=== PATIENT | male | born 1935 | race Caucasian/White ===

== ENCOUNTER 2024-10-19 10:51 | Emergency (ER) | payer MEDICARE, OTHER, SELFPAY ==
[2024-10-19 10:59] VITALS: BP 138/68; PULSE 80; TEMP 36.8; O2SAT 96; BMI 28.0
--- NOTE | 2024-10-19 11:15 | XR_ITS ---
The [address] [address] Patient Name: CARRIE JONES MRN: [id number] date: 1935 Sex: M Assigned Patient Location: ER Current Patient Location: Accession/Order Number: [id number] Exam Date: 10/19/2024 11:58 Report Date: 10/19/2024 12:31 At the request of: CATHLEEN POWELL Procedure: XR hand RT min 3V PROCEDURE: XR hand RT min 3V HISTORY: R thumb pain COMPARISON: None. FINDINGS: BONES:Multifocal marked degenerative joint disease. No acute fracture or dislocation. Separate ossification adjacent the first carpal-metacarpal joints and the first digit interphalangeal joint favoring sequela of remote injury. SOFT TISSUES:No visible soft tissue swelling. EFFUSION:None visible. OTHER: Negative. XR/XR hand RT min 3V IMPRESSION: 1. Multifocal marked degenerative joint disease. 2. No convincing acute bone abnormality. CT imaging of the hand could be performed for further evaluation if clinically indicated. Electronically authenticated by: ANTONELLA SHIN Date: 10/19/2024 12:31
--- NOTE | 2024-10-19 11:15 | XR_ITS ---
The [address] [address] Patient Name: CARRIE JONES MRN: [id number] date: 1935 Sex: M Assigned Patient Location: ER Current Patient Location: ER Accession/Order Number: [id number] Exam Date: 10/19/2024 11:58 Report Date: 10/19/2024 12:28 At the request of: CATHLEEN POWELL Procedure: XR chest 1V EXAMINATION: XR chest 1V HISTORY: cough COMPARISON: XR chest 08/01/2021 FINDINGS: LUNGS: Mild opacities within lateral left midlung and lingula. VASCULATURE: No increased pulmonary vasculature. PLEURA: No pneumothorax or pleural thickening. CARDIAC: No cardiomegaly or cardiac silhouette abnormality. MEDIASTINUM: No visible mass or adenopathy. BONES: Marked degenerative changes of the humeral heads. OTHER: Negative. XR/XR chest 1V IMPRESSION: 1. Mild-moderate left basilar infiltrates versus atelectasis. A small left pleural effusion cannot be excluded. Electronically authenticated by: ANTONELLA SHIN Date: 10/19/2024 12:28
--- NOTE | 2024-10-19 11:47 | ED.GENADUL1 ---
Documented by User: Raissa Garcia 10/19/24 11:49 HPI HPI - General Adult General Chief complaint: Extremity Injury, Upper Stated complaint: POSSIBLE BROKEN THUMB Time Seen by Provider: 10/19/24 11:04 History of Present Illness HPI narrative: Patient presents to ED for multiple complaints. Patient has pain in the right thumb. states his thumb got caught in his shirt and bent it last night and he is continue to have pain and swelling in the right thumb. also states since they are here he wanted to get checked out for other issues that have been going on. He has been urinating on himself, he has had increased confusion and bilateral lower extremity weakness. He had trouble standing on Saturday and continues to get weak and more confused at times. He has also had a cough. reports they have an appointment tomorrow with her family doctor but they were told to mention all of the stuff here today for us to do workup as well here today. is trying to get more help at home as far as assistance with his medical care and things of this nature. No chest pain no belly pain no fever. 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 Vital signs are stable. Related Data Home Medications ?Medication ?Instructions ?Recorded ?Confirmed tamsulosin 0.4 mg capsule 0.4 mg PO Q24H 10/19/24 10/19/24 Allergies Allergy/AdvReac Type Severity Reaction Status Date / Time No Known Drug Allergies Allergy Verified 10/19/24 11:01 Opioid HPI Opioid Management Most Recent Opioid Data: Last Pain Scale 6 10/19/24 11:45 10/19/24 Review of Systems ROS Status of ROS 10 or more systems reviewed and unremarkable except as noted in history and below PFSH PFSH Social History Little interest or pleasure in doing things: not at all Feeling down, depressed, or hopeless: not at all Exam Narrative Exam Narrative: Time Seen: [] Vital Signs: [Per nurse's notes.] General: [Alert] at baseline Skin: [Warm, dry, no rash.] Head: [Normocephalic, atraumatic.] Neck: [Supple, trachea midline.] Eye: [Pupils are equal, round and reactive to light, extraocular movements are intact, normal conjunctiva.] Ears, nose, mouth and throat: oral mucosa moist. Cardiovascular: [Regular rate and rhythm, no murmur.] Respiratory: [Lungs are clear to auscultation, respirations are non-labored, breath sounds are equal.] Chest wall: [No tenderness, no deformity.] Gastrointestinal: [Soft, nontender, non distended, normal bowel sounds.] MSK: 5 out of 5 muscle strength x 4 extremities no calf pain or edema. Tenderness and swelling at the base of the right thumb. Pain with range of motion. No wrist pain no elbow pain Psychiatric: [Cooperative, appropriate mood & affect.] Neurological: [Alert and oriented to person, at neurological baseline no focal neurological deficit observed.] Constitutional Vital Signs, click to edit/add: Last Vital Signs Temp 98.2 F 10/19/24 10:59 Pulse 80 10/19/24 13:10 Resp 16 10/19/24 13:10 BP 168/88 H 10/19/24 13:10 Pulse Ox 96 10/19/24 13:10 O2 Del Method Room Air 10/19/24 13:10 Course Vital Signs Vital signs: Vital Signs Temperature 98.2 F 10/19/24 10:59 Pulse Rate 80 10/19/24 10:59 Respiratory Rate 18 10/19/24 10:59 Blood Pressure 138/68 10/19/24 10:59 Pulse Oximetry 96 10/19/24 10:59 Oxygen Delivery Method Room Air 10/19/24 10:59 Temperature 98.2 F 10/19/24 10:59 Pulse Rate 80 10/19/24 13:10 Respiratory Rate 16 10/19/24 13:10 Blood Pressure 168/88 H 10/19/24 13:10 Pulse Oximetry 96 10/19/24 13:10 Oxygen Delivery Method Room Air 10/19/24 13:10 Medical Decision Making Lab Data Labs: Lab Results 10/19/24 10/19/24 Range/Units 11:50 11:55 WBC 11.0 (4.0-11.0) 10^3/uL RBC 4.69 L (4.70-6.10) 10^6/uL Hgb 14.6 (14.0-18.0) g/dL Hct 44.1 (42.0-54.0) % MCV 94.0 (80.0-94.0) fL MCH 31.1 (25.9-34.0) pg MCHC 33.1 (29.9-35.2) g/dL RDW 13.2 (11.0-15.0) % Plt Count 195 (150-450) 10^3/uL MPV 10.1 (9.5-13.5) fL Neut % (Auto) 74.2 (43.0-75.0) % Lymph % (Auto) 10.4 L (20.5-60.0) % [place] % (Auto) 12.9 H (1.7-12.0) % Eos % (Auto) 0.8 L (0.9-7.0) % Baso % (Auto) 0.3 (0.2-2.0) % Neut # (Auto) 8.2 H (1.4-6.5) 10^3/uL Lymph # (Auto) 1.2 (1.2-3.8) 10^3/uL [place] # (Auto) 1.4 H (0.3-0.8) 10^3/uL Eos # (Auto) 0.1 (0.0-0.7) 10^3/uL Baso # (Auto) 0.0 (0.0-0.1) 10^3/uL Abs Immat Gran (auto) 0.16 H (0.00-0.03) 10^3/uL Imm/Tot Granulo (auto) 1.4 H (0.0-0.5) % Sodium 141 (136-145) mmol/L Potassium 3.9 (3.5-5.1) mmol/L Chloride 109 H (98-107) mmol/L Carbon Dioxide 27.0 (21.0-32.0) mmol/L Anion Gap 8.9 BUN 22.0 H (7.0-18.0) mg/dL Creatinine 1.14 (0.70-1.30) mg/dL Est GFR ( Amer) >60 (>=60 mL/min/1.73m^2) Est GFR (Non-Af Amer) >60 (>=60 mL/min/1.73m^2) BUN/Creatinine Ratio 19.3 Glucose 100 (74-106) mg/dL Calcium 8.3 L (8.5-10.1) mg/dL Total Bilirubin 1.1 H (0.2-1.0) mg/dL AST 17 (15-37) U/L ALT 18 (16-63) U/L Alkaline Phosphatase 84 (46-116) U/L Total Protein 6.3 L (6.4-8.2) g/dL Albumin 3.2 L (3.4-5.0) g/dL Globulin 3.1 g/dL Albumin/Globulin Ratio 1.0 Urine Color Dk yellow (YELLOW) Urine Clarity Clear (CLEAR) Urine pH 6.5 (5.0-9.0) Ur Specific [place] 1.015 (1.005-1.025) Urine Protein Trace (NEG/TRACE) mg/dL Urine Glucose (UA) Negative (NEGATIVE) mg/dL Urine Ketones Negative (NEGATIVE) mg/dL Urine Occult Blood Trace-i (NEGATIVE) Urine Nitrite Negative (NEGATIVE) Urine Bilirubin Negative (NEGATIVE) Urine Urobilinogen 1.0 (0.2-1.0) EU/dL Ur Leukocyte Esterase Trace A (NEGATIVE) Urine RBC 2-5 A (0-2) #/HPF Urine WBC 0-2 A (NONE SEEN) #/HPF Ur Squamous Epith Cells Rare (NONE/RARE) #/LPF Urine Crystals None seen (None Seen) #/HPF Urine Bacteria None seen (NONE SEEN) #/HPF Urine Casts None seen (NONE SEEN) #/LPF Urine Mucus Trace A (NONE SEEN) Ur Culture Indicated? No Influenza Type A Ag Negative Influenza Type B Ag Negative SARS-CoV-2 Ag (CV2AG) Negative (NEGATIVE) Discharge Plan Discharge Chief Complaint: Extremity Injury, Upper Clinical Impression: Sprain of hand, thumb, right, Generalized muscle weakness Patient Disposition: Home, Self-Care Time of Disposition Decision: 12:52 Condition: Good Prescriptions / Home Meds: No Action tamsulosin 0.4 mg capsule 0.4 mg PO Q24H Print Language: Bulgarian Instructions: Finger Sprain (ED) Referrals: DANIEL XIE [Primary Care Provider] - 1 week Discharge Date/Time: 10/19/24 13:20 Documented by User: Cristin Dawkins MD 10/19/24 14:54 HPI HPI - General Adult General Chief complaint: Extremity Injury, Upper Stated complaint: POSSIBLE BROKEN THUMB Time Seen by Provider: 10/19/24 11:04 Related Data Home Medications ?Medication ?Instructions ?Recorded ?Confirmed tamsulosin 0.4 mg capsule 0.4 mg PO Q24H 10/19/24 10/19/24 Allergies Allergy/AdvReac Type Severity Reaction Status Date / Time No Known Drug Allergies Allergy Verified 10/19/24 11:01 Opioid HPI Opioid Management Most Recent Opioid Data: Last Pain Scale 6 10/19/24 11:45 10/19/24 PFSH PFSH Social History Little interest or pleasure in doing things: not at all Feeling down, depressed, or hopeless: not at all Exam Constitutional Vital Signs, click to edit/add: Last Vital Signs Temp 98.2 F 10/19/24 10:59 Pulse 80 10/19/24 13:10 Resp 16 10/19/24 13:10 BP 168/88 H 10/19/24 13:10 Pulse Ox 96 10/19/24 13:10 O2 Del Method Room Air 10/19/24 13:10 Course Vital Signs Vital signs: Vital Signs Temperature 98.2 F 10/19/24 10:59 Pulse Rate 80 10/19/24 10:59 Respiratory Rate 18 10/19/24 10:59 Blood Pressure 138/68 10/19/24 10:59 Pulse Oximetry 96 10/19/24 10:59 Oxygen Delivery Method Room Air 10/19/24 10:59 Temperature 98.2 F 10/19/24 10:59 Pulse Rate 80 10/19/24 13:10 Respiratory Rate 16 10/19/24 13:10 Blood Pressure 168/88 H 10/19/24 13:10 Pulse Oximetry 96 10/19/24 13:10 Oxygen Delivery Method Room Air 10/19/24 13:10 Medical Decision Making MDM Narrative Medical decision making narrative: I received signout from Dr. Garcia at 12 noon; The patient CBC and chemistry showed no acute significant pathology as well as his x-ray of the thumb X-ray of the chest shows possible atelectasis versus infiltrate on the left side, with the patient current presentation with no cough no difficulty breathing and no white blood cell elevation . This more correlate with possible atelectasis more than pneumonia Patient already follow-up with his primary care doctor tomorrow morning and the will explain more her home health care needs The patient had a thumb spica Velcro splint applied to the right thumb The patient is to follow up with primary care physician in next 2-3 days or to return to the emergency department should any of the signs or symptoms worsen or new symptoms develop. The patient agrees with the following Diagnosis and Treatment plan and the patient will be discharged home. Lab Data Labs: Lab Results 10/19/24 10/19/24 Range/Units 11:50 11:55 WBC 11.0 (4.0-11.0) 10^3/uL RBC 4.69 L (4.70-6.10) 10^6/uL Hgb 14.6 (14.0-18.0) g/dL Hct 44.1 (42.0-54.0) % MCV 94.0 (80.0-94.0) fL MCH 31.1 (25.9-34.0) pg MCHC 33.1 (29.9-35.2) g/dL RDW 13.2 (11.0-15.0) % Plt Count 195 (150-450) 10^3/uL MPV 10.1 (9.5-13.5) fL Neut % (Auto) 74.2 (43.0-75.0) % Lymph % (Auto) 10.4 L (20.5-60.0) % [place] % (Auto) 12.9 H (1.7-12.0) % Eos % (Auto) 0.8 L (0.9-7.0) % Baso % (Auto) 0.3 (0.2-2.0) % Neut # (Auto) 8.2 H (1.4-6.5) 10^3/uL Lymph # (Auto) 1.2 (1.2-3.8) 10^3/uL [place] # (Auto) 1.4 H (0.3-0.8) 10^3/uL Eos # (Auto) 0.1 (0.0-0.7) 10^3/uL Baso # (Auto) 0.0 (0.0-0.1) 10^3/uL Abs Immat Gran (auto) 0.16 H (0.00-0.03) 10^3/uL Imm/Tot Granulo (auto) 1.4 H (0.0-0.5) % Sodium 141 (136-145) mmol/L Potassium 3.9 (3.5-5.1) mmol/L Chloride 109 H (98-107) mmol/L Carbon Dioxide 27.0 (21.0-32.0) mmol/L Anion Gap 8.9 BUN 22.0 H (7.0-18.0) mg/dL Creatinine 1.14 (0.70-1.30) mg/dL Est GFR ( Amer) >60 (>=60 mL/min/1.73m^2) Est GFR (Non-Af Amer) >60 (>=60 mL/min/1.73m^2) BUN/Creatinine Ratio 19.3 Glucose 100 (74-106) mg/dL Calcium 8.3 L (8.5-10.1) mg/dL Total Bilirubin 1.1 H (0.2-1.0) mg/dL AST 17 (15-37) U/L ALT 18 (16-63) U/L Alkaline Phosphatase 84 (46-116) U/L Total Protein 6.3 L (6.4-8.2) g/dL Albumin 3.2 L (3.4-5.0) g/dL Globulin 3.1 g/dL Albumin/Globulin Ratio 1.0 Urine Color Dk yellow (YELLOW) Urine Clarity Clear (CLEAR) Urine pH 6.5 (5.0-9.0) Ur Specific [place] 1.015 (1.005-1.025) Urine Protein Trace (NEG/TRACE) mg/dL Urine Glucose (UA) Negative (NEGATIVE) mg/dL Urine Ketones Negative (NEGATIVE) mg/dL Urine Occult Blood Trace-i (NEGATIVE) Urine Nitrite Negative (NEGATIVE) Urine Bilirubin Negative (NEGATIVE) Urine Urobilinogen 1.0 (0.2-1.0) EU/dL Ur Leukocyte Esterase Trace A (NEGATIVE) Urine RBC 2-5 A (0-2) #/HPF Urine WBC 0-2 A (NONE SEEN) #/HPF Ur Squamous Epith Cells Rare (NONE/RARE) #/LPF Urine Crystals None seen (None Seen) #/HPF Urine Bacteria None seen (NONE SEEN) #/HPF Urine Casts None seen (NONE SEEN) #/LPF Urine Mucus Trace A (NONE SEEN) Ur Culture Indicated? No Influenza Type A Ag Negative Influenza Type B Ag Negative SARS-CoV-2 Ag (CV2AG) Negative (NEGATIVE) Discharge Plan Discharge Chief Complaint: Extremity Injury, Upper Clinical Impression: Sprain of hand, thumb, right, Generalized muscle weakness Patient Disposition: Home, Self-Care Time of Disposition Decision: 12:52 Condition: Good Prescriptions / Home Meds: No Action tamsulosin 0.4 mg capsule 0.4 mg PO Q24H Print Language: Bulgarian Instructions: Finger Sprain (ED) Referrals: DANIEL XIE [Primary Care Provider] - 1 week Discharge Date/Time: 10/19/24 13:20
[2024-10-19 12:04] LABS: Basophils Percent Auto 0.3 % (0.2-2.0); Eosinophils Absolute Auto 0.1 10^3/uL (0.0-0.7); Eosinophils Percent Auto 0.8 % (0.9-7.0); Hematocrit 44.1 % (42.0-54.0); Hemoglobin 14.6 g/dL (14.0-18.0); Immature Granulocytes Abs Auto 0.16 10^3/uL (0.00-0.03); Immature Granulocytes Pct Auto 1.4 % (0.0-0.5); Lymphocytes Absolute Auto 1.2 10^3/uL (1.2-3.8); Lymphocytes Percent Auto 10.4 % (20.5-60.0); Mean Corpuscular HGB Conc 33.1 g/dL (29.9-35.2); Mean Corpuscular Hemoglobin 31.1 pg (25.9-34.0); Mean Platelet Volume 10.1 fL (9.5-13.5); Monocytes Absolute Auto 1.4 10^3/uL (0.3-0.8); Monocytes Percent Auto 12.9 % (1.7-12.0); Neutrophils Absolute Auto 8.2 10^3/uL (1.4-6.5); Neutrophils Percent Auto 74.2 % (43.0-75.0); Platelet Count 195 10^3/uL (150-450); Red Blood Count 4.69 10^6/uL (4.70-6.10); Red Cell Distribution Width 13.2 % (11.0-15.0)
[2024-10-19 12:24] LABS: Influenza Virus A Antigen Negative; Influenza Virus B Antigen Negative; Internal Control Within Normal Limits; SARS-CoV-2 Ag NEGATIVE (NEGATIVE)
[2024-10-19 12:25] LABS: Alanine Aminotransferase 18 U/L (16-63); Albumin Level 3.2 g/dL (3.4-5.0); Alkaline Phosphatase 84 U/L (46-116); Anion Gap 8.9; Aspartate Amino Transferase 17 U/L (15-37); BUN Creatinine Ratio 19.3; Bilirubin Total 1.1 mg/dL (0.2-1.0); Calcium 8.3 mg/dL (8.5-10.1); Chloride 109 mmol/L (98-107); Estimated GFR (African America >60 (>=60 mL/min/1.73m^2); Estimated GFR (Non-African Ame >60 (>=60 mL/min/1.73m^2); Globulin 3.1 g/dL; Glucose 100 mg/dL (74-106); Potassium 3.9 mmol/L (3.5-5.1); Sodium 141 mmol/L (136-145); Total Protein 6.3 g/dL (6.4-8.2)
[2024-10-19 12:30] LABS: Bilirubin Urine NEGATIVE (NEGATIVE); Blood Urine TRACE-I (NEGATIVE); Clarity Urine CLEAR (CLEAR); Color Urine DK YELLOW (YELLOW); Glucose Urine UA NEGATIVE (NEGATIVE); Ketones Urine NEGATIVE (NEGATIVE); Leukocyte Esterase Urine TRACE (NEGATIVE); Nitrite Urine NEGATIVE (NEGATIVE); Protein Urine TRACE mg/dL (NEG/TRACE); Specific Gravity Urine 1.015 (1.005-1.025); Urine Microscopic Indicated YES; pH Urine 6.5 (5.0-9.0)
[2024-10-19 12:37] LABS: WBC Urine 0-2 #/HPF (NONE SEEN)
[2024-10-19 12:38] LABS: Bacteria Urine NONE SEEN #/HPF (NONE SEEN); Cast Seen? NONE SEEN #/LPF (NONE SEEN); Crystals Seen? None Seen #/HPF (None Seen); Mucus Urine TRACE (NONE SEEN); Squamous Epithelial Cell Urine RARE #/LPF (NONE/RARE); Urine Culture Indicated NO
[2024-10-19 13:10] VITALS: BP 168/88; PULSE 80; O2SAT 96
== END 2024-10-19 13:20 | disposition home or self-care (01) ==
PROVIDERS: Emergency Medicine; Emergency Provider Emergency Medicine; PCP Family Medicine
DX: S63.601A Unspecified sprain of right thumb, initial encounter (principal); M62.81 Muscle weakness (generalized); X58.XXXA Exposure to other specified factors, initial encounter; R05.9 Cough, unspecified
CPT/HCPCS: 36415; 71045; 73130; 80053; 81001; 85025; 87804; 87811; 99284

== ENCOUNTER 2025-05-03 10:20 | Emergency (ER) | payer MEDICARE, OTHER, SELFPAY ==
--- OUTSIDE RECORDS SUMMARY | 2025-04-20 11:00 | XMS_ITS | Encounter Summary ---
Author Organization [facility] Address [address] [place] [address] Care Team Providers Care Engineer Systems Name Role Phone Zafar Hernandes MD Unavailable Zafar Hernandes MD Primary Care Provider [phone] Yadira Ramos GOVERNMENT AFFAIRS MANAGER Unavailable [phone] Myriam Hook DO Unavailable [phone] Yojana Burgos NP Unavailable [phone] Reason for Referral * Home Health (Routine) - Authorized Specialty Diagnoses / Procedures Referred By Madina turner Referred To Contact Home Health Services Diagnoses Difficulty walking Memory loss Stage 3a chronic kidney disease (CMS-HCC) Unilateral primary osteoarthritis, 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, psychotic disturbance, mood disturbance, or anxiety, unspecified dementia type (HCC) Cerebral atrophy, mild Nikki Marroquin FURNITURE RENTAL CONSULTANT [address] [place] [address] Phone: tel: fax: Carito Davis MD [facility] [place] [address] Phone: tel: fax: Referral ID Status Reason Start Date Expiration Date Visits Requested Visits Authorized [id number] Authorized Specialty Services Required 04/20/2025 06/19/[phone] Scheduling Instructions I want [facility] for this referral Encounter Details Date Type Department Care Team (Late st Contact Info) Description 04/20/2025 11:00 AM EDT Office Visit [facility] 112 [facility] 110 [place] [address] iNkki Marroquin, FURNITURE RENTAL CONSULTANT 112 [facility] 110 [place] [address] Difficulty walking (Primary Dx); Memory loss; Stage 3a chronic kidney disease (CMS-HCC); Unilateral primary osteoarthritis, left knee; 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 behavioral disturbance, psychotic disturbance, mood disturbance, or anxiety, unspecified dementia type (HCC); Cerebral atrophy, mild ; Disorientation Social History Tobacco Use Types Packs/Day Years Used Date Smoking Tobacco: Never Smokeless Tobacco: Never Tobacco Cessation:Counseling Given: Yes Alcohol Use Standard Drinks/Week Comments Never 0 (1 standard drink = 0.6 oz pure alcohol) caffeine intake: 1-2 cups per day PHQ-2 Answer Date Recorded Patient Health Questionnaire-2 Score 0 04/20/2025 Sex and Gender Information Value Date Recorded Sex Assigned at Not on file Legal Sex Male 8:03 PM EDT Gender Identity Not on file Sexual Orientation Not on file documented as of this encounter Last Filed Vital Signs Vital Sign Reading Time Taken Comments Blood Pressure 101/62 04/20/2025 11:03 AM EDT Pulse 76 04/20/2025 11:03 AM EDT Temperature - - Respiratory Rate 16 04/20/2025 11:03 AM EDT Oxygen Saturation 96% 04/20/2025 11:03 AM EDT Inhaled Oxygen Concentration - - Weight 79.8 kg (176 lb) 04/20/2025 11:03 AM EDT Height 167.6 cm (5' 6 ) 04/20/2025 11:03 AM EDT Body Mass Index 28.41 04/20/2025 11:03 AM EDT documented in this encounter Functional Status * Over the past 2 weeks, how often have you been bothered by any of the following problems? Question Answer Date of Assessment Author Little interest or pleasure in doing things Not at all 04/20/2025 10:54 AM EDT FIFI MCKEON Feeling down, depressed, or hopeless Not at all 10/2024 10:54 AM EDT FIFI MCKEON Patient Health Questionnaire-2 Score 0 10/2024 10:54 AM EDT FIFI MCKEON documented as of this encounter Progress Notes * Nikki Marroquin, FURNITURE RENTAL CONSULTANT - 04/20/2025 11:00 AM EDT Images from the original note were not included. Subjective Patient ID: Davis Diaz is a 89 y.o. male who presents for No chief complaint on file.. Davis presents today for a visit to see about getting Home Health. He needs some PT and will only sit in his chair all day. When he needs to have a bowel movement he doesn't want to take the time to sit down to go. When he doesn't go for awhile he is having accidents. Over the past 2 weeks, how often have you been bothered by any of the following problems? Little interest or pleasure in doing things: Not at all Feeling down, depressed, or hopeless: Not at all Patient Health Questionnaire-2 Score: 0 Current Outpatient Medications on File Prior to Visit Medication Sig Dispense Refill donepezil (Aricept) 10 MG tablet Take 1 tablet (10 mg) by mouth at bedtime 30 tablet 2 memantine (Namenda) 10 MG tablet Take one tab daily (after the 30 days of the 5 mg) 30 tablet 2 memantine (Namenda) 5 MG tablet Take one for 30 days and then go to the 10 mg daily 30 tablet 0 Multiple Vitamin (multivitamin) tablet Take 1 tablet by mouth Daily No current facility-administered medications on file prior to visit. I have reviewed and reconciled the history and medication list with the patient today. No Known Allergies Social History Tobacco Use Smoking status: Never Smokeless tobacco: Never Vaping Use Vaping status: Never Used Substance Use Topics Alcohol use: Never Comment: caffeine intake: 1-2 cups per day Drug use: Never Family History Problem Relation Name Age of Onset Stroke Mother Pneumonia Father Melanoma Neg Hx Past Medical History: Diagnosis Date Appendicitis Arthritis Basal cell carcinoma Cataract Chicken pox COVID-19 06/2021 COVID-19 virus RNA test result positive at limit of detection 07/26/2021 non immunized History of medical treatment 08/18/2021 Left Ventricular size and thickness and function are normal. LV wall motion is normal. EF 65-70%, mild grade 1 DD Hx of medical treatment 08/01/2021 CT scan of the head No evidence of acute process Hx of medical treatment 08/28/2021 MRI of the brain No acute intracranial process Hypertension Measles Mononucleosis Mumps Osteomyelitis (HCC) 04/11/2023 Tonsillitis Past Surgical History: Procedure Laterality Date COLONOSCOPY 2020 COLONOSCOPY 05/08/2023 KIDNEY STONE SURGERY NECK SURGERY 2016 neck dune, lower back UMBILICAL HERNIA REPAIR 2017 Visit Vitals Smoking Status Never Review of Systems Constitutional: Positive for fatigue. HENT: Negative. Eyes: Negative. Respiratory: Negative. Genitourinary: Increased incontinence Musculoskeletal: Positive for gait problem. Skin: Negative. Neurological: Positive for weakness. Psychiatric/Behavioral: Positive for agitation and confusion. Endocrine: Negative. Objective Physical Exam Vitals reviewed. Constitutional: Appearance: Normal appearance. HENT: Head: Normocephalic. Nose: Nose normal. Mouth/Throat: Mouth: Mucous membranes are moist. Pharynx: Oropharynx is clear. Eyes: Conjunctiva/sclera: Conjunctivae normal. Cardiovascular: Rate and Rhythm: Normal rate and regular rhythm. Pulmonary: Effort: Pulmonary effort is normal. Breath sounds: Normal breath sounds. Abdominal: General: Bowel sounds are normal. Palpations: Abdomen is soft. Skin: General: Skin is warm and dry. Neurological: Mental Status: He is alert. He is confused. Motor: Weakness present. Psychiatric: Attention and Perception: He is inattentive. Mood and Affect: Affect is angry. Speech: Speech normal. Behavior: Behavior is agitated. Cognition and Memory: Cognition is impaired. Judgment: Judgment is inappropriate. Assessment/Plan Diagnoses and all orders for this visit: Difficulty walking - Ambulatory referral to Home Health; Future Await home health Memory loss - Ambulatory referral to Home Health; Future Await home health Stage 3a chronic kidney disease ([facility]-HCC) - Ambulatory referral to Home Health; Future - CBC; Future - Comprehensive metabolic panel; Future This is a chronic medical condition that is stable since last assessment. No changes in treatment are suggested at this time. Unilateral primary osteoarthritis, left knee - Ambulatory referral to Home Health; Future This is a chronic medical condition that is stable since last assessment. No changes in treatment are suggested at this time. 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 behavioral disturbance, psychotic disturbance, mood disturbance, or anxiety, unspecified dementia type ([facility]) - Ambulatory referral to Home Health; Future Update neurology on the agitation as aricept and namenda can cause some increased agitation. Cerebral atrophy, mild - Ambulatory referral to Home Health; Future This is a chronic medical condition that is stable since last assessment. No changes in treatment are suggested at this time. Disorientation - CBC; Future - Urinalysis with reflex microscopic; Future This is a chronic medical condition that is stable since last assessment. No changes in treatment are suggested at this time. No follow-ups on file. documented in this encounter Plan of Treatment Upcoming Encounters Date Type Department Care Team (Late st Contact Info) Description 05/12/2025 2:15 PM EDT Office Visit [facility] [address] [place] [address] Matt Eubanks DPM [address] [place], [place] [id number] Scheduled Orders Name Type Priority Associated Diagnoses Orde r Schedule Urinalysis with reflex microscopic Lab Routine Disorientation Expected: 04/20/2025 (Approximate), Expires: 04/20/2026 Scheduled Referrals Name Type Priority Associated Diagnoses Orde r Schedule Ambulatory referral to Home Health Outpatient Referral Routine Difficulty walking Memory loss Stage 3a chronic kidney disease (CMS-HCC) Unilateral primary osteoarthritis, 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, psychotic disturbance, mood disturbance, or anxiety, unspecified dementia type (HCC) Cerebral atrophy, mild Expected: 04/20/2025 (Approximate), Expires: 10/21/2025 documented as of this encounter Procedures Procedure Name Priority Date/Time Associated Diagnosis Comments CBC Routine 04/20/2025 1:05 PM EDT Stage 3a chronic kidney disease (CMS-HCC) Disorientation COMPREHENSIVE METABOLIC PANEL Routine 04/20/2025 1:05 PM EDT Stage 3a chronic kidney disease (CMS-HCC) documented in this encounter Results * (ABNORMAL) Comprehensive metabolic panel (04/20/2025 1:05 PM EDT) Glucose 76 65 - 99 mg/dL [facility] Comment: Fasting reference interval BUN 18 7 - 25 mg/dL [facility] Creatinine 1.01 0.70 - 1.22 mg/dL [facility] EGFR 72 > OR = 60 mL/min/1. 73m2 [facility] BUN/CREATININE RATIO SEE NOTE: 6 - 22 (calc) [facility] Comment: Not Reported: BUN and Creatinine are within reference range. Sodium 142 135 - 146 mmol/L [facility] Potassium, Bld 4.2 3.5 - 5.3 mmol/L [facility] Chloride 107 98 - 110 mmol/L [facility] Carbon Dioxide 26 20 - 32 mmol/L [facility] Calcium 8.8 8.6 - 10.3 mg/dL [facility] PROTEIN, TOTAL 6.0(L) 6.1 - 8.1 g/dL [facility] ALBUMIN 4.0 3.6 - 5.1 g/dL [facility] GLOBULIN 2.0 1.9 - 3.7 g/dL (calc) [facility] ALBUMIN/GLOBULIN RATIO 2.0 1.0 - 2.5 (calc) [facility] BILIRUBIN, TOTAL 0.8 0.2 - 1.2 mg/dL [facility] ALKALINE PHOSPHATASE 81 35 - 144 U/L [facility] AST 14 10 - 35 U/L [facility] ALT 11 9 - 46 U/L [facility] Blood Venous blood specimen / Unknown 04/20/2025 1:05 PM EDT 04/20/2025 1:06 PM EDT Narrative Resulting Agency Comment Performing Organization Information Site ID: QPT Name: [facility] Address: [address] [place] [address], [address] [place] [phone] Director: Lee Hale MD us Nikki Marroquin FURNITURE RENTAL CONSULTANT LAB BLOOD ORDERABLES Final R esult [facility] * CBC (04/20/2025 1:05 PM EDT) WHITE BLOOD CELL COUNT 8.1 3.8 - 10.8 Thousand/u L [facility] RED BLOOD CELL COUNT 4.66 4.20 - 5.80 Million/uL [facility] HEMOGLOBIN 14.6 13.2 - 17.1 g/dL [facility] HEMATOCRIT 44.4 38.5 - 50.0 % [facility] MCV 95.3 80.0 - 100.0 fL [facility] MCH 31.3 27.0 - 33.0 pg [facility] MCHC 32.9 32.0 - 36.0 g/dL [facility] Comment: For adults, a slight decrease in the calculated MCHC value (in the range of 30 to 32 g/dL) is most likely not clinically significant; however, it should be interpreted with caution in correlation with other red cell parameters and the patient's clinical condition. RDW 12.9 11.0 - 15.0 % [facility] PLATELET COUNT 203 140 - 400 Thousand/u L [facility] MPV 9.9 7.5 - 12.5 fL [facility] Blood Venous blood specimen / Unknown 04/20/2025 1:05 PM EDT 04/20/2025 1:06 PM EDT Narrative Resulting Agency Comment Performing Organization Information Site ID: QPT Name: [facility] Address: [address] , [address] [place] [phone] Director: Lee Hale MD Nikki Marroquin FURNITURE RENTAL CONSULTANT LAB BLOOD ORDERABLES Final R esult [facility] documented in this encounter Visit Diagnoses Diagnosis Difficulty walking- Primary Difficulty in walking Memory loss Stage 3a chronic kidney disease (CMS-HCC) Unilateral primary osteoarthritis, 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, psychotic disturbance, mood disturbance, or anxiety, unspecified dementia type (HCC) Cerebral atrophy, mild Unspecified cerebral degeneration Disorientation Other general symptoms documented in this encounter Additional Health Concerns Assessment Noted Time PHQ-9 Depression Total Score: 16 024 2:00 PM EST documented as of this encounter Care Teams Engineer Systems Relationship Specialty Start Date End Date Zafar Hernandes MD [address] [facility] 110 [place] [address] PCP - ACO Reach 03/14/23 Zafar Hernandes MD [address] [facility] 110 [place] [address] PCP - General Family Medicine 07/16/24 Yadira Ramos, BERTIN [address] [place], [place] [id number] Interventional Radiologist Family Medicine 10/20/24 Myriam Hook DO [address] [place] [address] Referring Physician Neurology 12/23/24 Yojana Burgos NP [address] [place] [address] Nurse Practitioner Neurology 02/15/25 documented as of this encounter
[2025-05-03] VITALS (17 sets, daily range): BP systolic 126–166; BP diastolic 68–85; PULSE 51–71; TEMP 36.6; O2SAT 94–97; BMI 29.4
--- OUTSIDE RECORDS SUMMARY | 2025-05-03 10:37 | XMS_ITS | Encounter Summary ---
Author Organization [facility] Address [address] [place] [address] Care Team Providers Care Carrot Buncher Name Role Phone Zafar Hernandes MD Unavailable Zafar Hernandes MD Primary Care Provider [phone] Yadira Ramos EMAIL DESIGNER Unavailable [phone] Myriam Hook DO Unavailable [phone] Yojana Burgos NP Unavailable [phone] Encounter Details Date Type Department Care Team (Late st Contact Info) Description 12/31/2024 Abstract [facility] 112 [facility] 110 [place] [id number] Zafar Hernandes MD [address] [facility] 110 [place], [place] [id number] Social History Tobacco Use Types Packs/Day Years Used Date Smoking Tobacco: Never Smokeless Tobacco: Never Alcohol Use Standard Drinks/Week Comments Never 0 (1 standard drink = 0.6 oz pure alcohol) caffeine intake: 1-2 cups per day Sex and Gender Information Value Date Recorded Sex Assigned at Not on file Legal Sex Male 8:03 PM EDT Gender Identity Not on file Sexual Orientation Not on file documented as of this encounter Plan of Treatment Upcoming Encounters Date Type Department Care Team (Late st Contact Info) Description 05/12/2025 2:15 PM EDT Office Visit [facility] [address] [place] [phone] Matt Eubanks, DPM [address] [place] [id number] documented as of this encounter Visit Diagnoses Not on filedocumented in this encounter Additional Health Concerns Assessment Noted Time PHQ-9 Depression Total Score: 16 024 2:00 PM EST documented as of this encounter Care Teams Carrot Buncher Relationship Specialty Start Date End Date Zafar Hernandes MD [address] [place] [address] PCP - ACO Reach 03/14/23 Zafar Hernandes MD [address] [facility] [address] [place] [address] PCP - General Family Medicine 07/16/24 Yadira Ramos, EMAIL DESIGNER [address] [facility] [address] Field Sales Manager Family Medicine 10/20/24 Myriam Hook DO [address] [place] [address] Referring Physician Neurology 12/23/24 Yojana Burgos NP [address] [place] [address] Nurse Practitioner Neurology 02/15/25 documented as of this encounter
--- OUTSIDE RECORDS SUMMARY | 2025-05-03 10:37 | XMS_ITS | Encounter Summary ---
Author Organization [facility] Address [address] [place] [address] Care Team Providers Care Retail And Restaurant Name Role Phone Zafar Hernandes MD Unavailable Zafar Hernandes MD Primary Care Provider [phone] Yadira Ramos BRIDGE CONTRACTOR Unavailable Myriam Hook DO Unavailable [phone] Yojana Burgos NP Unavailable [phone] Encounter Details Date Type Department Care Team (Late st Contact Info) Description 04/13/2025 Abstract [facility] [address] [facility] 110 [place] [phone] Zafar Hernandes MD [address] [facility] [address] [place], [place] [id number] Social History Tobacco Use Types Packs/Day Years Used Date Smoking Tobacco: Never Smokeless Tobacco: Never Alcohol Use Standard Drinks/Week Comments Never 0 (1 standard drink = 0.6 oz pure alcohol) caffeine intake: 1-2 cups per day PHQ-2 Answer Date Recorded Patient Health Questionnaire-2 Score 0 02/11/2025 Sex and Gender Information Value Date Recorded Sex Assigned at Not on file Legal Sex Male 8:03 PM EDT Gender Identity Not on file Sexual Orientation Not on file documented as of this encounter Plan of Treatment Upcoming Encounters Date Type Department Care Team (Late st Contact Info) Description 05/12/2025 2:15 PM EDT Office Visit [facility] [address] [place] [address] Matt Eubanks DPM [address] [place] [address] documented as of this encounter Visit Diagnoses Not on filedocumented in this encounter Additional Health Concerns Assessment Noted Time PHQ-9 Depression Total Score: 16 024 2:00 PM EST documented as of this encounter Care Teams Retail And Restaurant Relationship Specialty Start Date End Date Zafar Hernandes MD [address] [place] [address] PCP - ACO Reach 03/14/23 Zafar Hernandes MD [address] [place] [address] PCP - General Family Medicine 07/16/24 Yadira Ramos, BRIDGE CONTRACTOR [address] [facility] [address] Oracle Bpm Developer Family Medicine 10/20/24 Myriam Hook DO [address] [place] [address] Referring Physician Neurology 12/23/24 Yojana Burgos NP [address] [place] [address] Nurse Practitioner Neurology 02/15/25 documented as of this encounter
--- OUTSIDE RECORDS SUMMARY | 2025-05-03 10:37 | XMS_ITS | Encounter Summary ---
Author Organization [facility] Address [address] [place] [address] Care Team Providers Care Supervisor Record Press Name Role Phone Zafar Hernandes MD Unavailable Zafar Hernandes MD Primary Care Provider [phone] Yadira Ramos MOTOR DRIVER Unavailable [phone] Myriam Hook DO Unavailable [phone] Yojana Burgos NP Unavailable [phone] Encounter Details Date Type Department Care Team (Latest Contact Info) Description 04/20/2025 Travel Social History Tobacco Use Types Packs/Day Years [...] on file documented as of this encounter Functional Status * Over the past 2 weeks, how often have you been bothered by any of the following problems? Question Answer Date of Assessment Author Little interest or pleasure in doing things Not at all 04/20/2025 10:54 AM COMFORTT FIFI MCKEON Feeling down, depressed, or hopeless Not at all 10/2024 10:54 AM EDT FIFI MCKEON Patient Health Questionnaire-2 Score 0 10/2024 10:54 AM EDT FIFI MCKEON documented as of this encounter Plan of Treatment Upcoming Encounters Date Type Department Care Team (Late st Contact Info) Description 05/12/2025 2:15 PM EDT Office Visit [facility] [address] [place] [address] Matt Eubanks, DPBharathi [address] [place] [address] documented as of this encounter Visit Diagnoses Not on filedocumented in this encounter Additional Health Concerns Assessment Noted Time PHQ-9 Depression Total Score: 16 024 2:00 PM EST documented as of this encounter Care Teams Supervisor Record Press Relationship Specialty Start Date End Date Zafar Hernandes MD [address] [place] [address] PCP - ACO Reach 03/14/23 Zafar Hernandes MD [address] [place] [address] PCP - General Family Medicine 07/16/24 Yadira Ramos, MOTOR DRIVER [address] [place] [address] Loan Documents Closer Family Medicine 10/20/24 Myriam Hook DO [address] [place] [address] Referring Physician Neurology 12/23/24 Yojana Burgos NP [address] [place] [address] Nurse Practitioner Neurology 02/15/25 documented as of this encounter
--- OUTSIDE RECORDS SUMMARY | 2025-05-03 10:37 | XMS_ITS | Encounter Summary ---
Author Organization [facility] Address [address] [place] [address] Care Team Providers Care Seed Service Advisor Name Role Phone Zafar Hernandes MD Unavailable Zafar Hernandes MD Primary Care Provider [phone] Yadira Ramos BIN CLEANER Unavailable [phone] Myriam Hook DO Unavailable [phone] Yojana Burgos NP Unavailable [phone] Encounter Details Date Type Department Care Team (Late st Contact Info) Description 04/20/2025 Bamboo flowsheet [facility] [address] [place] [address] Nikki Marroquin BUYERS' AGENT [address] [place] [address] Social History Tobacco Use Types Packs/Day Years [...] EDT Office Visit [facility] [address] [place] [address] Matt Eubanks, DPBharathi [address] [place], [place] [id number] documented as of this encounter Visit Diagnoses Not on filedocumented in this encounter Additional Health Concerns Assessment Noted Time PHQ-9 Depression Total Score: 16 12/04/ 024 2:00 PM EST documented as of this encounter Care Teams Seed Service Advisor Relationship Specialty Start Date End Date Zafar Hernandes MD [address] [place] [address] PCP - ACO Reach 03/14/23 Zafar Hernandes MD [address] [place] [address] PCP - General Family Medicine 07/16/24 Yadira Ramos, BIN CLEANER [address] [place] [address] Elementary Education Teacher Family Medicine 10/20/24 Myriam Hook DO [address] [place] [address] Referring Physician Neurology 12/23/24 Yojana Burgos NP [address] [place] [address] Nurse Practitioner Neurology 02/15/25 documented as of this encounter
--- OUTSIDE RECORDS SUMMARY | 2025-05-03 10:37 | XMS_ITS | Clinical Summary ---
Author Organization [facility] Address [address] [place] [address] Phone Care Team Providers Care Tubing Tester Name Role Phone Unavailable Primary Care Provider Unavailabl e Social History Tobacco Use Types Packs/Day Years Used Date Smoking Tobacco: Never Assessed Sex and Gender Information Value Date Recorded Sex Assigned at Not on file Legal Sex Male 2:58 AM EST Gender Identity Not on file Sexual Orientation Not on file Plan of Treatment Not on file
--- OUTSIDE RECORDS SUMMARY | 2025-05-03 10:37 | XMS_ITS | Clinical Summary ---
Author Organization [facility] Address [address] [place] [address] Care Team Providers Care Field Adjuster Name Role Phone Zach Barbosa DO Primary Care Provider [phone] Social History Tobacco Use Types Packs/Day Years Used Date Smoking Tobacco: Never Assessed Sex and Gender Information Value Date Recorded Sex Assigned at Not on file Legal Sex Male 2:21 PM EST Gender Identity Not on file Sexual Orientation Not on file Plan of Treatment Not on file Insurance MEDICARE Member Subscriber Plan / Payer (Ef fective 2014-Present) Name:Davis Diaz Relation to Subscriber:Self Name:Davis Diaz Payer ID:Not on file Group ID:Not on file Type:Not on file Address: [address] Care Teams Field Adjuster Relationship Specialty Start Date End Date Zach Barbosa DO [address] [place] [address] PCP - General Family Medicine 11/07/17
--- OUTSIDE RECORDS SUMMARY | 2025-05-03 10:37 | XMS_ITS | Encounter Summary ---
Author Organization [facility] Address [address] [place] [address] Care Team Providers Care Marketing Communications Coordinator Name Role Phone Zafar Hernandes MD Unavailable Zafar Hernandes MD Primary Care Provider [phone] Yadira Ramos MORTGAGE PROTECTION SPECIALIST Unavailable [phone] Myriam Hook DO Unavailable [phone] Yojana Burgos NP Unavailable [phone] Encounter Details Date Type Department Care Team (Late st Contact Info) Description 04/28/2025 Telephone [facility] [address] [place] [address] Zafar Hernandes MD [address] [place], [place] [address] Social History Tobacco Use Types Packs/Day Years [...] on file documented as of this encounter Miscellaneous Notes * Telephone Encounter - Cathleen Boatengl - 04/28/2025 1:28 PM EDT Janet from [facility] called back, wanted the doctor to know that they are adding a Housekeeping Attendant to Davis's plan of care. documented in this encounter Plan of Treatment Upcoming Encounters Date Type Department Care Team (Late st Contact Info) Description 05/12/2025 2:15 PM EDT Office Visit [facility] [address] [place] [address] Matt Eubanks, DPBharathi [address] [place] [address] documented as of this encounter Visit Diagnoses Not on filedocumented in this encounter Additional Health Concerns Assessment Noted Time PHQ-9 Depression Total Score: 16 024 2:00 PM EST documented as of this encounter Care Teams Marketing Communications Coordinator Relationship Specialty Start Date End Date Zafar Hernandes MD [address] [place] [address] PCP - ACO Reach 03/14/23 Zafar Hernandes MD [address] [place] [address] PCP - General Family Medicine 07/16/24 Yadira Ramos, BERTIN [address] [facility] [place] [address] Housekeeping Attendant Family Medicine 10/20/24 Myriam Hook DO [address] [place] [address] Referring Physician Neurology 12/23/24 Yojana Burgos NP [address] [place] [address] Nurse Practitioner Neurology 02/15/25 documented as of this encounter
--- OUTSIDE RECORDS SUMMARY | 2025-05-03 10:37 | XMS_ITS | Encounter Summary ---
Author Organization [facility] Address [address] [place] [address] Care Team Providers Care Petroleum Production Engineer Name Role Phone Zafar Hernandes MD Unavailable Zafar Hernandes MD Primary Care Provider [phone] Zafar Hernandes MD Primary Care Provider [phone], Brittany RECONCILIATION SPECIALIST Unavailable [phone] Yadira Ramos MILL HELPER Unavailable Myriam Hook DO Unavailable [phone] Yojana Burgos TECHNICAL SME Unavailable [phone] Encounter Details Date Type Department Care Team (Late st Contact Info) Description 01/15/2024 Abstract [facility] [address] [facility] 110 [place] [address] Zafar Hernandes MD [address] [facility] 110 [place] [address] Social History Tobacco Use Types Packs/Day Years [...] Encounters Date Type Department Care Team (Late Contact Info) Description 05/12/2025 2:15 PM EDT Office Visit [facility] [address] [place] [address] Matt Eubanks, DPM [address] [place], [place] [address] documented as of this encounter Visit Diagnoses Not on filedocumented in this encounter Additional Health Concerns Assessment Noted Time PHQ-9 Depression Total Score: 16 12/04/ 024 2:00 PM EST documented as of this encounter Care Teams Petroleum Production Engineer Relationship Specialty Start Date End Date Zafar Hernandes MD [address] [place] [address] PCP - ACO Reach 03/14/23 Zafar Hernandes MD [address] [place] [address] PCP - General Family Medicine 04/15/23 07/15/24 Zafar Hernandes MD [address] [place] [address] PCP - General Family Medicine 07/16/24SaturdayBrittany LPN [address] [place] [address] Licensed Practical Nurse Family Medicine 10/01/2409/20 Yadira Ramos, MILL HELPER [address] [place], [place] [address] Refractory Mixer Family Medicine 10/20/24 Myriam Hook DO [address] [place] [address] Referring Physician Neurology 12/23/24 Yojana Burgos NP [address] [place] [address] Nurse Practitioner Neurology 02/15/25 documented as of this encounter
--- OUTSIDE RECORDS SUMMARY | 2025-05-03 10:37 | XMS_ITS | Encounter Summary ---
Author Organization [facility] Address [address] [place] [address] Care Team Providers Care Dye House Vat Worker Name Role Phone Zafar Hernandes MD Unavailable Zafar Hernandes MD Primary Care Provider [phone] Zafar Hernandes MD Primary Care Provider [phone], Brittany SANDING LINE OPERATOR Unavailable [phone] Yadira Ramos TICK SEWER Unavailable Myriam Hook DO Unavailable [phone] Yojana Burgos ENGINEER SECOND ASSISTANT Unavailable [phone] Encounter Details Date Type Department Care Team (Late Contact Info) Description 08/21/2023 Abstract [facility] [address] [facility] 110 [place] [address] Zafar Hernandes MD [address] [facility] 110 [place] [address] Social History Tobacco Use Types [...] EDT Office Visit [facility] [address] [place] [address] Matt Eubanks, DPM [address] [place] [address] documented as of this encounter Visit Diagnoses Not on filedocumented in this encounter Care Teams Dye House Vat Worker Relationship Specialty Start Date End Date Zafar Hernandes MD [address] [place] [address] PCP - ACO Reach 03/14/23 Zafar Hernandes MD [address] [place] [address] PCP - General Family Medicine 04/15/23 07/15/24 Zafar Hernandes MD [address] [place] [address] PCP - General Family Medicine 07/16/24SaturdayBrittany LPN [address] [place] [address] Licensed Practical Nurse Family Medicine 10/01/2409/20 Yadira Ramos, TICK SEWER [address] [facility] [place] [address] E Business Project Manager Family Medicine 10/20/24 Myriam Hook DO [address] [place] [address] Referring Physician Neurology 12/23/24 Yojana Burgos NP [address] [place] [address] Nurse Practitioner Neurology 02/15/25 documented as of this encounter
--- OUTSIDE RECORDS SUMMARY | 2025-05-03 10:37 | XMS_ITS | Encounter Summary ---
Author Organization [facility] Address [address] [place] [address] Care Team Providers Care Guard Range Name Role Phone Zafar Hernandes MD Unavailable Zafar Hernandes MD Primary Care Provider [phone] Yadira Ramos TEXTILE BAG SEWER Unavailable [phone] Myriam Hook DO Unavailable [phone] Yojana Burgos NP Unavailable [phone] Encounter Details Date Type Department Care Team (Late st Contact Info) Description 11/12/2024 Abstract [facility] [address] [facility] 110 [place] [address] Zafar Hernandes MD [address] [facility] 110 [place], [place] [address] Social History Tobacco Use Types Packs/Day Years [...] Office Visit [facility] [address] [place] [address] Matt Eubanks, DPM [address] [place], [place] [address] documented as of this encounter Visit Diagnoses Not on filedocumented in this encounter Additional Health Concerns Assessment Noted Time PHQ-9 Depression Total Score: 16 024 2:00 PM EST documented as of this encounter Care Teams Guard Range Relationship Specialty Start Date End Date Zafar Hernandes MD [address] [place] [address] PCP - ACO Reach 03/14/23 Zafar Hernandes MD [address] [facility] 110 [place] [address] PCP - General Family Medicine 07/16/24 Yadira Ramos, TEXTILE BAG SEWER [address] [facility] [address] Manager Customs Family Medicine 10/20/24 Myriam Hook DO [address] [place] [address] Referring Physician Neurology 12/23/24 Yojana Burgos NP [address] [place] [address] Nurse Practitioner Neurology 02/15/25 documented as of this encounter
--- OUTSIDE RECORDS SUMMARY | 2025-05-03 10:37 | XMS_ITS | Encounter Summary ---
Author Organization [facility] Address [address] [place] [address] Care Team Providers Care Rippler Name Role Phone Zafar Hernandes MD Unavailable Zafar Hernandes MD Primary Care Provider +41 Yadira Ramos WATER TAXI BOAT MATE Unavailable [phone] Myriam Hook DO Unavailable [phone] Yojana Burgos NP Unavailable [phone] Encounter Details Date Type Department Care Team (Late st Contact Info) Description 04/20/2025 External Result Encounter [facility] External Department Unsolicited Nikki Marroquin NP [address] [place] [address] Social History Tobacco Use Types [...] FIFI MCKEON Patient Health Questionnaire-2 Score 0 070 10/2024 10:54 AM EDT FIFI MCKEON documented as of this encounter Plan of Treatment Upcoming Encounters Date Type Department Care Team (Late st Contact Info) Description 05/12/2025 2:15 PM EDT Office Visit [facility] [address] [place] [address] Matt Eubanks, DPBharathi [address] [place] [address] documented as of this encounter Procedures Procedure Name Priority Date/Time Associated Diagnosis Comments NOTE Routine 04/20/2025 1:23 PM EDT URINALYSIS REFLEX Routine 04/20/2025 1:2 3 PM EDT documented in this encounter Results * NOTE (04/20/2025 1:23 PM EDT) NOTE [facility] Comment: This urine was analyzed for the presence of WBC, RBC, bacteria, casts, and other formed elements. Only those elements seen were reported. 04/20/2025 1:23 PM EDT 04/20/2025 1:24 PM EDT Narrative Resulting Agency Comment Performing Organization Information Site ID: QPT Name: [facility] Address: [address] [place] [address], [address] [place] [id number] Director: Lee Hale MD Nikki Marroquin NP [facility] Final Result [facility] * (ABNORMAL) Urinalysis with reflex microscopic (04/20/2025 1:23 PM EDT) COLOR DARK YELLOW YELLOW [facility] APPEARANCE CLOUDY(A) CLEAR [facility] SPECIFIC GRAVITY 1.021 1.001 - 1.035 [facility] PH 5.5 5.0 - 8.0 [facility] GLUCOSE NEGATIVE NEGATIVE [facility] BILIRUBIN NEGATIVE NEGATIVE [facility] KETONES TRACE(A) NEGATIVE [facility] OCCULT BLOOD NEGATIVE NEGATIVE [facility] PROTEIN NEGATIVE NEGATIVE [facility] NITRITE NEGATIVE NEGATIVE [facility] LEUKOCYTE ESTERASE TRACE(A) NEGATIVE [facility] WBC NONE SEEN < OR = 5 /HPF [facility] RBC NONE SEEN < OR = 2 /HPF [facility] SQUAMOUS EPITHELIAL CELLS 0-5 < OR = 5 /HPF [facility] BACTERIA NONE SEEN NONE SEEN /HPF [facility] HYALINE CAST NONE SEEN NONE SEEN /LPF [facility] 04/20/2025 1:23 PM EDT 04/20/2025 1:24 PM EDT Narrative Resulting Agency Comment Performing Organization Information Site ID: QPT Name: [facility] Address: [address] [place] [address] Director: Lee Hale MD us Nikki Marroquin FLOWER MACHINE OPERATOR LAB URINE ORDERABLES Final R esult [facility] documented in this encounter Visit Diagnoses Not on filedocumented in this encounter Additional Health Concerns Assessment Noted Time PHQ-9 Depression Total Score: 16 12/04/ 024 2:00 PM EST documented as of this encounter Care Teams Rippler Relationship Specialty Start Date End Date Zafar Hernandes MD [address] [facility] 110 [place] [address] PCP - ACO Reach 03/14/23 Zafar Hernandes MD [address] [facility] 110 [place] [address] PCP - General Family Medicine 07/16/24 Yadira Ramos, BERTIN [address] [place] [address] Director Process Engineering Family Medicine 10/20/24 Myriam Hook DO [address] [place], [place] [address] Referring Physician Neurology 12/23/24 Yojana Burgos NP [address] [place] [address] Nurse Practitioner Neurology 02/15/25 documented as of this encounter
--- OUTSIDE RECORDS SUMMARY | 2025-05-03 10:37 | XMS_ITS | Encounter Summary ---
Author Organization [facility] Address [address] [place] [address] Care Team Providers Care Hydrogen Braze Furnace Operator Name Role Phone Zafar Hernandes MD Unavailable Zafar Hernandes MD Primary Care Provider [phone], Brittany PURCHASING COORDINATOR Unavailable [phone] Yadira Ramos BUSINESS DEVELOPMENT REPRESENTATIVE Unavailable Myriam Hook DO Unavailable [phone] Yojana Burgos BINGO CASHIER Unavailable [phone] Encounter Details Date Type Department Care Team (Late st Contact Info) Description 07/27/2024 Abstract [facility] [address] [facility] 110 [place] [address] Zafar Hernandes MD [address] [facility] 110 [place], [place] [address] Social History Tobacco Use Types Packs/Day Years [...] Office Visit [facility] [address] [place] [address] Matt Eubanks, DPM [address] [place] [address] documented as of this encounter Visit Diagnoses Not on filedocumented in this encounter Additional Health Concerns Assessment Noted Time PHQ-9 Depression Total Score: 16 12/04/ 024 2:00 PM EST documented as of this encounter Care Teams Hydrogen Braze Furnace Operator Relationship Specialty Start Date End Date Zafar Hernandes MD [address] [place] [address] PCP - ACO Reach 03/14/23 Zafar Hernandes MD [address] [place] [address] PCP - General Family Medicine 07/16/24Saturday, IVÁN Soto [address] [place] [address] Licensed Practical Nurse Family Medicine 10/01/2409/20 Yadira Ramos, BUSINESS DEVELOPMENT REPRESENTATIVE [address] [facility] [place] [address] Cut Out Operator Family Medicine 10/20/24 Myriam Hook DO [address] [place] [address] Referring Physician Neurology 12/23/24 Yojana Burgos NP [address] [place] [address] Nurse Practitioner Neurology 02/15/25 documented as of this encounter
--- OUTSIDE RECORDS SUMMARY | 2025-05-03 10:37 | XMS_ITS | Encounter Summary ---
Author Organization [facility] Address [address] [place] [address] Care Team Providers Care Meter Reading Clerk Name Role Phone Zafar Hernandes MD Unavailable Zafar Hernandes MD Primary Care Provider [phone] Zafar Hernandes MD Primary Care Provider [phone], Brittany OUTBOUND SALES REPRESENTATIVE Unavailable [phone] Yadira Ramos ENVIRONMENT ARTIST Unavailable Myriam Hook DO Unavailable [phone] Yojana Burgos ACTIMIZE ARCHITECT Unavailable [phone] Encounter Details Date Type Department Care Team (Late st Contact Info) Description 12/11/2023 Abstract [facility] [address] [facility] 110 [place] [address] Zafar Hernandes MD [address] [facility] 110 [place] [address] Social History Tobacco Use Types [...] EDT Office Visit [facility] [address] [place] [address] Matt Eubanks, DPM [address] [place], [place] [address] documented as of this encounter Visit Diagnoses Not on filedocumented in this encounter Additional Health Concerns Assessment Noted Time PHQ-9 Depression Total Score: 16 12/04/ 024 2:00 PM EST documented as of this encounter Care Teams Meter Reading Clerk Relationship Specialty Start Date End Date Zafar Hernandes MD [address] [place] [address] PCP - ACO Reach 03/14/23 Zafar Hernandes MD [address] [place] [address] PCP - General Family Medicine 04/15/23 07/15/24 Zafar Hernandes MD [address] [place] [address] PCP - General Family Medicine 07/16/24SaturdayBrittany LPN [address] [place] [address] Licensed Practical Nurse Family Medicine 10/01/2409/20 Yadira Ramos, ENVIRONMENT ARTIST [address] [place], [place] [address] Community Support Specialist Family Medicine 10/20/24 Myriam Hook DO [address] [place] [address] Referring Physician Neurology 12/23/24 Yojana Burgos NP [address] [place] [address] Nurse Practitioner Neurology 02/15/25 documented as of this encounter
--- OUTSIDE RECORDS SUMMARY | 2025-05-03 10:37 | XMS_ITS | Encounter Summary ---
Author Organization [facility] Address [address] [place] [address] Care Team Providers Care Dining Room Attendant Name Role Phone Zafar Hernandes MD Unavailable Zafar Hernandes MD Primary Care Provider [phone] Yadira Ramos MICROBIAL SPECIALIST Unavailable Myriam Hook DO Unavailable [phone] Yojana Burgos NP Unavailable [phone] Encounter Details Date Type Department Care Team (Late st Contact Info) Description 04/29/2025 Abstract [facility] [address] [facility] 110 [place] [address] Zafar Hernandes MD [address] [facility] 110 [place], [place] [address] Social History Tobacco Use Types Packs/Day Years [...] EDT Office Visit [facility] [address] [place] [address] Matt Eubanks DPM [address] [place] [address] documented as of this encounter Visit Diagnoses Not on filedocumented in this encounter Additional Health Concerns Assessment Noted Time PHQ-9 Depression Total Score: 16 024 2:00 PM EST documented as of this encounter Care Teams Dining Room Attendant Relationship Specialty Start Date End Date Zafar Hernandes MD [address] [place] [address] PCP - ACO Reach 03/14/23 Zafar Hernandes MD [address] [place] [address] PCP - General Family Medicine 07/16/24 Yadira Ramos, MICROBIAL SPECIALIST [address] [facility] [place] [address] Supervisor Costuming Family Medicine 10/20/24 Myriam Hook DO [address] [place] [address] Referring Physician Neurology 12/23/24 Yojana Burgos NP [address] [place] [address] Nurse Practitioner Neurology 02/15/25 documented as of this encounter
--- OUTSIDE RECORDS SUMMARY | 2025-05-03 10:37 | XMS_ITS | Encounter Summary ---
Author Organization [facility] Address [address] [place] [address] Care Team Providers Care Assistant Tennis Coach Name Role Phone Zafar Hernandes MD Unavailable Zafar Hernandes MD Primary Care Provider [phone] Yadira Ramos ACCOUNT FINANCIAL MANAGER Unavailable Myriam Hook DO Unavailable [phone] Yojana Burgos NP Unavailable [phone] Encounter Details Date Type Department Care Team (Late st Contact Info) Description 04/21/2025 Abstract [facility] [address] [facility] 110 [place] [address] Zafar Hernandes MD [address] [facility] 110 [place], [place] [address] Social History Tobacco Use Types Packs/Day Years [...] EDT Office Visit [facility] [address] [place] [address] Matt Eubanks DPM [address] [place] [address] documented as of this encounter Visit Diagnoses Not on filedocumented in this encounter Additional Health Concerns Assessment Noted Time PHQ-9 Depression Total Score: 16 024 2:00 PM EST documented as of this encounter Care Teams Assistant Tennis Coach Relationship Specialty Start Date End Date Zafar Hernandes MD [address] [place] [address] PCP - ACO Reach 03/14/23 Zafar Hernandes MD [address] [place] [address] PCP - General Family Medicine 07/16/24 Yadira Ramos, ACCOUNT FINANCIAL MANAGER [address] [facility] [place] [address] Senior Regulatory Affairs Specialist Family Medicine 10/20/24 Myriam Hook DO [address] [place] [address] Referring Physician Neurology 12/23/24 Yojana Burgos NP [address] [place] [address] Nurse Practitioner Neurology 02/15/25 documented as of this encounter
--- OUTSIDE RECORDS SUMMARY | 2025-05-03 10:37 | XMS_ITS | Encounter Summary ---
Author Organization [facility] Address [address] [place] [address] Care Team Providers Care Cage Loader Name Role Phone Zafar Hernandes MD Unavailable Zafar Hernandes MD Primary Care Provider [phone] Yadira Ramos DECORATING KILN OPERATOR Unavailable [phone] Myriam Hook DO Unavailable [phone] Yojana Burgos NP Unavailable [phone] Encounter Details Date Type Department Care Team (Late st Contact Info) Description 04/22/2025 Telephone [facility] [address] [facility] 110 [place] [address] Zafar Hernandes MD 112 [facility] 110 [place], [place] [address] Social History Tobacco Use Types Packs/Day Years [...] encounter Miscellaneous Notes * Telephone Encounter - Marlen Waldrop MA - 04/22/2025 1:18 PM EDT Hi, this is Latoya. With physical therapy from a [facility] I completed an evaluation today for patient Davis Diaz. Date of is sorfarrah, [phone]. And I was just calling to get the verbal ordersfor us to continue with further physical therapy. If you could please give me a call back when you get a chance. My number is [phone] Annetta [phone]. Thank you by. Returned call stated yes ok to continue documented in this encounter Plan of Treatment Upcoming Encounters Date Type Department Care Team (Late st Contact Info) Description 05/12/2025 2:15 PM EDT Office Visit [facility] [address] [place] [address] Matt Eubanks DPM [address] [place], [place] [address] documented as of this encounter Visit Diagnoses Not on filedocumented in this encounter Additional Health Concerns Assessment Noted Time PHQ-9 Depression Total Score: 16 024 2:00 PM EST documented as of this encounter Care Teams Cage Loader Relationship Specialty Start Date End Date Zafar Hernandes MD [address] [facility] 110 [place] [address] PCP - ACO Reach 03/14/23 Zafar Hernandes MD [address] [place] 110 [place] [address] PCP - General Family Medicine 07/16/24 Yadira Ramos, BERTIN [address] [facility] [place] [address] Medical Records Manager Family Medicine 10/20/24 Myriam Hook DO [address] [place] [address] Referring Physician Neurology 12/23/24 Yojana Burgos NP [address] [place] [address] Nurse Practitioner Neurology 02/15/25 documented as of this encounter
--- OUTSIDE RECORDS SUMMARY | 2025-05-03 10:37 | XMS_ITS | Encounter Summary ---
Author Organization [facility] Address [address] [place] [address] Care Team Providers Care Sample Shoe Inspector And Reworker Name Role Phone Zafar Hernandes MD Unavailable Zafar Hernandes MD Primary Care Provider [phone] Yadira Ramos CAR REPAIRER PULLMAN Unavailable Myriam Hook DO Unavailable [phone] Yojana Burgos NP Unavailable [phone] Encounter Details Date Type Department Care Team (Late st Contact Info) Description 02/24/2025 Abstract [facility] 112 [facility] 110 [place] [address] Zafar Hernandes MD [address] [facility] 110 [place], [place] [address] Social History Tobacco Use Types Packs/Day Years [...] EDT Office Visit [facility] [address] [place] [address] Matt Eubanks DPM [address] [place] [address] documented as of this encounter Visit Diagnoses Not on filedocumented in this encounter Additional Health Concerns Assessment Noted Time PHQ-9 Depression Total Score: 16 024 2:00 PM EST documented as of this encounter Care Teams Sample Shoe Inspector And Reworker Relationship Specialty Start Date End Date Zafar Hernandes MD [address] [place] [address] PCP - ACO Reach 03/14/23 Zafar Hernandes MD [address] [place] [address] PCP - General Family Medicine 07/16/24 Yadira Ramos, CAR REPAIRER PULLMAN [address] [facility] [place] [address] Respiratory Care Program Director Family Medicine 10/20/24 Myriam Hook DO [address] [place] [address] Referring Physician Neurology 12/23/24 Yojana Burgos NP [address] [place] [address] Nurse Practitioner Neurology 02/15/25 documented as of this encounter
--- OUTSIDE RECORDS SUMMARY | 2025-05-03 10:37 | XMS_ITS | Clinical Summary ---
Author Organization [facility] Address [id number] [address] [place] [address] Care Team Providers Care Cash Register Repairer Name Role Phone Jamel Chino MD Primary Care Provider Allergies No known active allergies Medications lisinopril-hydr oCHLOROthiazide (PRINZIDE,ZESTO RETIC) 20-12.5 mg per tablet Take 2 tablets by mouth daily. 3 9 Active meloxicam (MOBIC) 15 mg tablet Take 15 mg by mouth daily. Active baclofen (LIORESAL) 20 mg tablet Take 20 mg by mouth 3 (three) times a day as needed for muscle spasms. Active ibuprofen (ADVIL,MOTRIN) 200 mg tablet Take 600 mg by mouth 2 (two) times a day. Active ciprofloxacin HCl (CIPRO) 500 mg tablet Take 500 mg by mouth 2 (two) times a day. 0 9 Active gabapentin (NEURONTIN) 100 mg capsule Take 100 mg by mouth 3 (three) times a day. 1 9 Active metroNIDAZOLE (FLAGYL) 500 mg tablet Take 500 mg by mouth 4 (four) times a day. 0 9 Active omeprazole (PriLOSEC) 40 mg capsule Take 40 mg by mouth daily. 0 9 Active traMADol (ULTRAM) 50 mg tablet Take 50 mg by mouth 4 (four) times a day as needed. 0 9 Active sodium,potassiu m,mag sulfates (SUPREP BOWEL PREP KIT) 17.5-3.13-1.6 gram recon soln 177 ml,actual weight, 2 times daily, Oral 1 kit 9 Active Additional Information Patient not taking.Reported on 06/08/2019 amoxicillin (AMOXIL) 500 mg capsule Take 500 mg by mouth 3 (three) times a day. 0 9 Active Active Problems No known active problems Family History Relation Name Status Comments Father Mother Social History Tobacco Use Types Packs/Day Years Used Date Smoking Tobacco: Never Smokeless Tobacco: Never Alcohol Use Standard Drinks/Week Comments Never 0 (1 standard drink = 0.6 oz pur e alcohol) AUDIT-C Answer Date Recorded Frequency of Alcohol Consumption Never 03/11/2019 Average Number of Drinks Not on file 019 Frequency of Binge Drinking Not on file 02/19 Childcare Answer Date Recorded Childcare Unknown 03/20/2019 Employment Answer Date Recorded Employment Unknown 03/20/2019 Purpose - Life Answer Date Recorded Purpose and direction in life Unknown Sex and Gender Information Value Date Recorded Sex Assigned at Not on file Legal Sex Male 11:43 AM EDT Gender Identity Not on file Sexual Orientation Not on file Last Filed Vital Signs Vital Sign Reading Time Taken Comments Blood Pressure 130/76 06/08/2019 2:54 PM EDT Pulse 66 03/12/2019 9:30 AM EDT Temperature - - Respiratory Rate - - Oxygen Saturation - - Inhaled Oxygen Concentration - - Weight 98.9 kg (218 lb) 06/08/2019 2:54 PM EDT Height 177.8 cm (5' 10 ) 06/08/2019 2:54 PM EDT Body Mass Index 31.28 06/08/2019 2:54 PM EDT Plan of Treatment Health Maintenance Due Date Last Done Comments Depression Screening 1947 Tobacco Screening 1947 DTaP,Tdap and Td Vaccines (1 - Tdap) 1956 Zoster (Shingles) Vaccine (1 of 2) 1987 Fall Risk Screening 2002 Influenza Vaccine 06/21/2025 Medical Devices Not on file Insurance [employer]ICARE [employer] Care Teams Cash Register Repairer Relationship Specialty Start Date End Date Jamel Chino MD PCP - General Family Medicine 03/11/19
--- OUTSIDE RECORDS SUMMARY | 2025-05-03 10:37 | XMS_ITS | Encounter Summary ---
Author Organization [facility] Address [address] [place] [address] Care Team Providers Care Consolidation Accountant Name Role Phone Zafar Hernandes MD Unavailable Zafar Hernandes MD Primary Care Provider [phone] Yadira Ramos CONTENT DESIGNER Unavailable [phone] Myriam Hook DO Unavailable [phone] Yojana Burgos NP Unavailable [phone] Encounter Details Date Type Department Care Team (Late st Contact Info) Description 02/24/2025 Abstract [facility] 112 [facility] 110 [place] [phone] Zafar Hernandes MD [address] [place] [facility] 110 [place], [place] [id number] Social History Tobacco Use Types Packs/Day Years [...] EDT Office Visit [facility] [address] [place] [address] Matt Eubanks DPM [address] [place] [address] documented as of this encounter Visit Diagnoses Not on filedocumented in this encounter Additional Health Concerns Assessment Noted Time PHQ-9 Depression Total Score: 16 024 2:00 PM EST documented as of this encounter Care Teams Consolidation Accountant Relationship Specialty Start Date End Date Zafar Hernandes MD [address] [place] [address] PCP - ACO Reach 03/14/23 Zafar Hernandes MD [address] [place] [address] PCP - General Family Medicine 07/16/24 Yadira Ramos, CONTENT DESIGNER [address] [facility] [place] [address] Quality Control Microbiology Supervisor Family Medicine 10/20/24 Myriam Hook DO [address] [place] [address] Referring Physician Neurology 12/23/24 Yojana Burgos NP [address] [place] [address] Nurse Practitioner Neurology 02/15/25 documented as of this encounter
--- OUTSIDE RECORDS SUMMARY | 2025-05-03 10:37 | XMS_ITS ---
Author Organization [facility] Address [address] [place] [address] Care Team Providers Care Solar Installation Manager Name Role Phone Zafar Hernandes MD Unavailable Zafar Hernandes MD Primary Care Provider [phone] Yadira Ramos Unavailable [phone] Myriam Hook DO Unavailable [phone] Yojana Burgos NP Unavailable [phone] Chronic Care Management (CCM) Status:Enrolled (Active) Start date:10/20/2024 Enrollment date:10/20/2024 Enrollment reason:Self-enrolled Overview Please assess for Care Management needs. 10/20/24, 9:18 AM - BERTIN Morales- Patient gives verbal consent to be enrolled in CCM Program and understands there could be a bill for this service. PtCCM Bill No with Medicare/Medical [place] Case Team Name Relationship Phone Yadira DENTON(Responsible Staff) [facility] [phone] Continued Care and Services Coordination
--- OUTSIDE RECORDS SUMMARY | 2025-05-03 10:37 | XMS_ITS | Encounter Summary ---
Author Organization [facility] Address [address] [place] [address] Care Team Providers Care Stair Builder Name Role Phone Zafar Hernandes MD Unavailable Zafar Hernandes MD Primary Care Provider [phone] Yadira Ramos GLOBAL TECHNICAL WRITER Unavailable Myriam Hook DO Unavailable [phone] Yojana Burgos NP Unavailable [phone] Encounter Details Date Type Department Care Team (Late st Contact Info) Description 01/07/2025 Abstract [facility] [address] [facility] 110 [place] [phone] Zafar Hernandes MD [address] [facility] 110 [place], [place] [id number] Social History Tobacco Use Types Packs/Day Years [...] Office Visit [facility] [address] [place] [address] Matt Eubanks, DPM [address] [place], [place] [address] documented as of this encounter Visit Diagnoses Not on filedocumented in this encounter Additional Health Concerns Assessment Noted Time PHQ-9 Depression Total Score: 16 024 2:00 PM EST documented as of this encounter Care Teams Stair Builder Relationship Specialty Start Date End Date Zafar Hernandes MD [address] [place] [address] PCP - ACO Reach 03/14/23 Zafar Hernandes MD [address] [facility] 110 [place] [address] PCP - General Family Medicine 07/16/24 Yadira Ramos, GLOBAL TECHNICAL WRITER [address] [facility] [place] [address] Child Study Team Director Family Medicine 10/20/24 Myriam Hook DO [address] [place] [address] Referring Physician Neurology 12/23/24 Yojana Burgos NP [address] [place] [address] Nurse Practitioner Neurology 02/15/25 documented as of this encounter
--- OUTSIDE RECORDS SUMMARY | 2025-05-03 10:37 | XMS_ITS | Clinical Summary ---
Author Organization [facility] Address [address] [place] [address] Care Team Providers Care Metal Mold Dresser Name Role Phone Zafar Hernandes MD Unavailable Zafar Hernandes MD Primary Care Provider [phone] Yadira Ramos DIRECTOR OF MATERIALS Unavailable [phone] Myriam oHok DO Unavailable [phone] Yojana Burgos NP Unavailable [phone] Allergies No known active allergies Medications Multiple Vitamin (multivitamin) tablet Take 1 tablet by mouth Daily Active donepezil (Aricept) 10 MG tabletIndication s:Late onset Alzheimer's dementia without behavioral disturbance, psychotic disturbance, mood disturbance, or anxiety, unspecified dementia severity (HCC) Take 1 tablet (10 mg) by mouth at bedtime 30 tablet 2 12/23/2024 12/24/19 26 Active memantine (Namenda) 5 MG tabletIndication s:Late onset Alzheimer's dementia without behavioral disturbance, psychotic disturbance, mood disturbance, or anxiety, unspecified dementia severity (HCC) Take one for 30 days and then go to the 10 mg daily 30 tablet 02/15/2025 Active memantine (Namenda) 10 MG tabletIndication s:Late onset Alzheimer's dementia without behavioral disturbance, psychotic disturbance, mood disturbance, or anxiety, unspecified dementia severity (HCC) Take one tab daily (after the 30 days of the 5 mg) 30 tablet 2 02/15/2025 Active Active Problems Problem Noted Date Diagnosed Date 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 Cerebral atrophy, mild 10/20/2024 Assessment & Plan (10/20/2024 11:11 AM EST): Given lower MMSE need to rule out other causes of Memory loss and dementia such as CVA/ Brain tumor History of COVID-19 12/04/2023 Cardiomegaly 04/11/2023 Difficulty walking 04/11/2023 Hypertension 04/11/2023 Irritable bowel syndrome 04/11/2023 Memory loss 04/11/2023 Assessment & Plan (10/20/2024 11:28 AM EST): Add MVI Add Folic Acid and B12 Check labs Memory games Labs from [facility] reviewed CBC UA and CMP were normal Cannot rule out Normal Pressure Hydrocephalous Raised prostate specific antigen 04/11/2023 Stage 3a chronic kidney disease 04/11/2023 Unilateral primary osteoarthritis, left knee Resolved Problems Problem Noted Date Diagnosed Date Resolved Date COVID 12/04/2023 12/04/2023 Osteomyelitis 04/11/2023 12/04/2023 Otitis externa 04/11/2023 12/04/2023 Encounters Date Type Department Care Team Description 04/29/2025 Abstract [facility] [address] [facility] 110 [place] [address] Zafar Hernandes MD 04/28/2025 Telephone [facility] [address] [facility] 100 [place] [address] Zafar Hernandes MD 04/22/2025 Telephone [facility] [address] [facility] [address] [place] [address] Zafar Hernandes MD 04/21/2025 Telephone [facility] [address] [facility] [address] [place] [address] Nikki Marroquin, TAMANNA 04/21/2025 Abstract [facility] [address] [facility] [address] [place] [address] Zafar Hernandes MD 04/20/2025 11:00 AM EDT Office Visit [facility] [address] [facility] [address] [place] [phone] Nikki Marroquin NP Difficulty walking (Primary Dx); Memory loss; Stage 3a chronic kidney disease (CMS-HCC); Unilateral primary osteoarthritis, left knee; 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 behavioral disturbance, psychotic disturbance, mood disturbance, or anxiety, unspecified dementia type (HCC); Cerebral atrophy, mild ; Disorientation 04/20/2025 External Result Encounter [facility] External Department Unsolicited Nikki Marroquin NP 04/20/2025 Bamboo flowsheet [facility] [address] [facility] [address] [place] [phone] Nikki Marroquin NP 04/20/2025 Travel 04/13/2025 Abstract [facility] [address] [facility] [facility] [address] [place] [phone] Zafar Hernandes MD 04/07/2025 Patient Outreach [facility] [address] [place] [address] Yadira Ramos, [facility] 02/25/2025 Patient Outreach [facility] [address] [place] [address] Yadira Ramos, [facility] 02/24/2025 Abstract [facility] [address] [facility] [address] [place] [address] Zafar Hernandes MD 02/24/2025 Abstract [facility] [address] [facility] [address] [place] [address] Zafar Hernandes MD 02/16/2025 Telephone [facility] [address] [address] [place] [address] Yojana Burgos NP 02/15/2025 2:00 PM EDT Office Visit [facility] [place] [address] [place] [address] Gillmor, Yojana, BROOD STATION MANAGER Late onset Alzheimer's dementia without behavioral disturbance, psychotic disturbance, mood disturbance, or anxiety, unspecified dementia severity (HCC) (Primary Dx); Abnormal laboratory test; Idiopathic peripheral neuropathy; Weakness 02/15/2025 Telephone [facility] 100 [address] [facility] [address] [place] [address] Zafar Hernandes MD 02/11/2025 2:30 PM EDT Office Visit [facility] 112 [facility] 110 [place] [address] Nikki Marroquin NP Cerebral atrophy, mild (Primary Dx); Unspecified convulsions (HCC); Chronic kidney disease, stage 3a (CMS-HCC); Major depressive disorder, recurrent, moderate (HCC); 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 behavioral disturbance, psychotic disturbance, mood disturbance, or anxiety, unspecified dementia type (HCC); Difficulty walking 02/11/2025 Bamboo flowsheet [facility] 112 [facility] 110 [place] [address] Nikki Marroquin NP 02/11/2025 Travel 02/10/2025 Patient Outreach [facility] [address] [place] [address] Yadira Ramos LSW 02/01/2025 2:15 PM EDT Office Visit [facility] [address] [place] [address] Matt Eubanks DPM Dermatophytosis of nail (Primary Dx); Dystrophic nail; Pain around toenail, right foot; Pain around toenail, left foot 02/01/2025 Bamboo flowsheet [facility] [address] [place] [phone] Matt Eubanks DPM 02/01/2025 Travel from Last 3 Months Immunizations Immunization Administration Dates Next Due Tdap 02/05/2017 Family History Medical History Relation Name Comments Pneumonia Father Stroke Mother Melanoma Neg Hx Relation Name Status Comments Father Mother Social [...] Pulse 76 04/20/2025 11:03 AM EDT Temperature 37.1 C (98.7 F) 09/18/2023 3:48 PM EST Respiratory Rate 16 04/20/2025 11:03 AM EDT Oxygen Saturation 96% 04/20/2025 11:03 AM EDT Inhaled Oxygen Concentration - - Weight 79.8 kg (176 lb) 04/20/2025 11:03 AM EDT Height 167.6 cm (5' 6 ) 04/20/2025 11:03 AM EDT Body Mass Index 28.41 04/20/2025 11:03 AM EDT Plan of Treatment Upcoming Encounters Date Type Department Care Team (Late st Contact Info) Description 05/12/2025 2:15 PM EDT Office Visit [facility] [address] [place] [address] Matt Eubanks, DPM [address] [place], [place] [phone] Health Maintenance Due Date Last Done Comments Pneumococcal Vaccine: 65+ Years (1 of 1 - PCV) 987 Influenza Vaccine (#1) 2025 Procedures Procedure Name Priority Date/Time Associated Diagnosis Comments NOTE Routine 04/20/2025 1:23 PM EDT URINALYSIS REFLEX Routine 04/20/2025 1:2 3 PM EDT COMPREHENSIVE METABOLIC PANEL Routine 04/20/2025 1:05 PM EDT Stage 3a chronic kidney disease ([facility]) CBC Routine 04/20/2025 1:05 PM EDT Stage 3a chronic kidney disease ([facility]) Disorientation from Last 3 Months Results * NOTE (04/20/2025 1:23 PM EDT) NOTE [facility] Comment: This urine was analyzed for the presence of WBC, RBC, bacteria, casts, and other formed elements. Only those elements seen were reported. 04/20/2025 1:23 PM EDT 04/20/2025 1:24 PM EDT Narrative Resulting Agency Comment Performing Organization Information Site ID: QPT Name: [employer] [facility] Address: [address] [place] [address], [address] [place] [phone] Director: Lee Hale MD Nikki Marroquin NP [facility] Final Result Performing Organization Address [facility] de Phone Number [facility] * (ABNORMAL) Urinalysis with reflex microscopic [...] Performing Organization Information Site ID: QPT Name: [employer] [facility] Address: [address] [place] [address], [address] [place] [phone] Director: Lee Hale MD Nikki Marroquin NP LAB URINE ORDERABLES Final R esult Performing Organization Address [facility] de Phone Number [facility] * CBC (04/20/2025 1:05 PM EDT) Pathologist [facility] WHITE BLOOD CELL COUNT 8.1 3.8 - [...] Performing Organization Information Site ID: QPT Name: [employer] [facility] Address: [address] [place] [address], [address] [place] [phone] Director: Lee Hale MD us Nikki Marroquin BROOD STATION MANAGER LAB BLOOD ORDERABLES Final R esult [facility] * (ABNORMAL) Comprehensive metabolic panel (04/20/2025 1:05 PM EDT) Pathologist [facility] Glucose 76 65 - 99 mg/dL [facility] [...] Performing Organization Information Site ID: QPT Name: [employer] [facility] Address: [address] [place] [address], [address] [place] [phone] Director: Lee Hale MD Nikki Marroquin NP LAB BLOOD ORDERABLES Final R esult [facility] from Last 3 Months Insurance MEDICARE [employer] Care Teams Metal Mold Dresser Relationship Specialty Start Date End Date Zafar Hernandes MD [address] [facility] [address] [place] [address] PCP - ACO Reach 03/14/23 Zafar Hernandes MD [address] [facility] 110 [place] [address] PCP - General Family Medicine 07/16/24 Yadira Ramos, DIRECTOR OF MATERIALS [address] [place], [place] [phone] Installation Service Representative Family Medicine 10/20/24 Myriam Hook DO [address] [place], [place] [id number] Referring Physician Neurology 12/23/24 Yojana Burgos NP [address] [place] [address] Nurse Practitioner Neurology 02/15/25
--- OUTSIDE RECORDS SUMMARY | 2025-05-03 10:37 | XMS_ITS | Encounter Summary ---
Author Organization [facility] Address [address] [place] [address] Care Team Providers Care Capsule Machine Operator Name Role Phone Zafar Hernandes MD Unavailable Zafar Hernandes MD Primary Care Provider [phone] Zafar Hernandes MD Primary Care Provider [phone], Brittany DICTATING MACHINE TRANSCRIBER Unavailable [phone] Yadira Ramos HOME IMPROVEMENT CONTRACTOR Unavailable [phone] Myriam Hook DO Unavailable [phone] Yojana Burgos CO FOUNDER AND PRESIDENT Unavailable [phone] Encounter Details Date Type Department Care Team (Late st Contact Info) Description 05/20/2024 Abstract [facility] [address] [facility] [facility] [address] [place] [address] Zafar Hernandes MD [address] [facility] 110 [place] [address] Social History Tobacco Use Types [...] EDT Office Visit [facility] [address] [place] [phone] Matt Eubanks, DPM [address] [place], [place] [phone] documented as of this encounter Visit Diagnoses Not on filedocumented in this encounter Additional Health Concerns Assessment Noted Time PHQ-9 Depression Total Score: 16 12/04/ 024 2:00 PM EST documented as of this encounter Care Teams Capsule Machine Operator Relationship Specialty Start Date End Date Zafar Hernandes MD [address] [place] [address] PCP - ACO Reach 03/14/23 Zafar Hernandes MD [address] [place] [address] PCP - General Family Medicine 04/15/23 07/15/24 Zafar Hernandes MD [address] [place] [address] PCP - General Family Medicine 07/16/24SaturdayBrittany LPN [address] [place] [address] Licensed Practical Nurse Family Medicine 10/01/2409/20 Yadira Ramos, HOME IMPROVEMENT CONTRACTOR [address] [place], [place] [phone] Oil Furnace Installer Family Medicine 10/20/24 Myriam Hook DO [address] [place] [address] Referring Physician Neurology 12/23/24 Yojana Burgos NP [address] [place] [address] Nurse Practitioner Neurology 02/15/25 documented as of this encounter
--- OUTSIDE RECORDS SUMMARY | 2025-05-03 10:37 | XMS_ITS | Encounter Summary ---
Author Organization [facility] Address [address] [place] [address] Care Team Providers Care Cook Box Filler Name Role Phone Zafar Hernandes MD Unavailable Zafar Hernandes MD Primary Care Provider [phone] Yadira Ramos EXERCISE PHYSIOLOGIST CERTIFIED Unavailable [phone] Myriam Hook DO Unavailable [phone] Yojana Burgos NP Unavailable [phone] Encounter Details Date Type Department Care Team (Late st Contact Info) Description 04/21/2025 Telephone [facility] [address] [place] [address] [place] [address] Nikki Marroquin NETWORK RELAY TESTER [address] [facility] 110 [place], [place] [phone] Social History Tobacco Use Types Packs/Day Years [...] Telephone Encounter - Marlen Waldrop MA - 04/21/2025 12:07 PM EDT Hi, this is Janet. I am with Ryan Arzate. I am here in the home of Davis Diaz. Data , 1 [phone]. We are getting him admitted to home care. We have the orders for nursing P, T, O, T and Home Health Aid. I was just wondering if it would be okay for us to add speech therapy for memory issues, if that would be if the doc was okay with that 1, my call back is [phone]. If you could let me know, I would appreciate it. Thanks. Returned call stated yes to speech therapy documented in this encounter Plan of Treatment Upcoming Encounters Date Type Department Care Team (Late st Contact Info) Description 05/12/2025 2:15 PM EDT Office Visit [facility] [address] [place] [address] Matt Eubanks, DPM [address] [place], [place] [phone] documented as of this encounter Visit Diagnoses Not on filedocumented in this encounter Additional Health Concerns Assessment Noted Time PHQ-9 Depression Total Score: 16 024 2:00 PM EST documented as of this encounter Care Teams Cook Box Filler Relationship Specialty Start Date End Date Zafar Hernandes MD [address] [facility] 110 [place] [address] PCP - ACO Reach 03/14/23 Zafar Hernandes MD [address] [place] [address] PCP - General Family Medicine 07/16/24 Yadira Ramos, EXERCISE PHYSIOLOGIST CERTIFIED [address] [place] [address] Rn Field Family Medicine 10/20/24 Myriam Hook DO [address] [place] [address] Referring Physician Neurology 12/23/24 Yojana Burgos NP [address] [place], [place] [id number] Nurse Practitioner Neurology 02/15/25 documented as of this encounter
--- OUTSIDE RECORDS SUMMARY | 2025-05-03 10:37 | XMS_ITS | Encounter Summary ---
Author Organization [facility] Address [address] [place] [address] Care Team Providers Care Community Health Consultant Name Role Phone Zafar Hernandes MD Unavailable Zafar Hernandes MD Primary Care Provider [phone] Yadira Ramos [employer]ER Unavailable Myriam Hook DO Unavailable [phone] Yojana Burgos NP Unavailable [phone] Encounter Details Date Type Department Care Team (Late st Contact Info) Description 12/10/2024 Abstract [facility] [address] [facility] [address] [place] [phone] Zafar Hernandes MD [address] [facility] [address] [place], [place] [id number] Social History Tobacco Use Types Packs/Day Years [...] Office Visit [facility] [address] [place] [phone] Matt Eubanks, DPM [address] [place], [place] [phone] documented as of this encounter Visit Diagnoses Not on filedocumented in this encounter Additional Health Concerns Assessment Noted Time PHQ-9 Depression Total Score: 16 024 2:00 PM EST documented as of this encounter Care Teams Community Health Consultant Relationship Specialty Start Date End Date Zafar Hernandes MD [address] [place] [address] PCP - ACO Reach 03/14/23 Zafar Hernandes MD [address] [facility] [address] [place] [address] PCP - General Family Medicine 07/16/24 Yadira Ramos, BR[employer] CLE[employer] LABORER [address] [facility] [address] Surfacer Family Medicine 10/20/24 Myriam Hook DO [address] [place] [address] Referring Physician Neurology 12/23/24 Yojana Burgos NP [address] [place] [address] Nurse Practitioner Neurology 02/15/25 documented as of this encounter
--- NOTE | 2025-05-03 10:49 | ECG_ITS ---
[facility] Test Date: 2025-05-03 Pat Name: CARRIE JONES Department: Room: - Gender: Male Fan Runner: : 1935 Requested By: 1030 Order Number: [id number] Reading MD: JORGE ERNST Measurements Intervals [place] Rate: 67 P: 63 SC: 208 QRS: -62 QRSD: 142 T: 70 QT: 412 QTc: 428 Interpretive Statements 1100 Sinus rhythm 2450 Right bundle branch block 2630 Left anterior fascicular block Bifascicular Block 3414 Cannot rule out septal myocardial infarction, age undetermined 5233 Voltage criteria for LVH 9150 abnormal ECG Compared to ECG 08/01/2021 14:39:10 Early repolarization no longer present Myocardial infarct finding still present Electronically Signed On 05-05-2025 13:23:08 EDT by JORGE ERNST
--- NOTE | 2025-05-03 10:50 | ED.GENADUL1 ---
HPI HPI - General Adult General Chief complaint: Altered Mental Status Stated complaint: IRRITABLE, CONFUSED, EYE ISSUE Time Seen by Provider: 05/03/25 10:42 Mode of arrival: walk-in Limitations: no limitations History of Present Illness HPI narrative: 89-year-old male presents to the emergency department with his for symptoms of confusion and dilated right pupil. Both of these issues have resolved completely. It happened 2 days ago and he has not been on any new medications and does not use scopolamine patches. She states he is acting himself now and his eyes look normal. Related Data Home Medications ?Medication ?Instructions ?Recorded ?Confirmed donepezil 10 mg tablet 10 mg PO BEDTIME 05/03/25 05/03/25 Allergies Allergy/AdvReac Type Severity Reaction Status Date / Time No Known Drug Allergies Allergy Verified 05/03/25 10:28 Opioid HPI Opioid Management Most Recent Opioid Data: Last Pain Scale 6 10/19/24, 11:45 Review of Systems ROS Narrative Not obtainable, dementia PFSH PFSH Social History Little interest or pleasure in doing things: not at all Feeling down, depressed, or hopeless: not at all Exam Narrative Exam Narrative: Nurses note and vital signs reviewed and patient is not hypoxic. General: The patient appears well and in no apparent distress. Patient is resting comfortably on cart. Skin: Warm, dry, no pallor noted. There is no rash noted. Head: Normocephalic, atraumatic Eye: Normal conjunctiva, no drainage, EOMI. PERRL Ears, Nose, Mouth, and Throat: oral mucosa is moist. Nares patent. Cardiovascular: Regular Rate and Rhythm Respiratory: Patient is in no distress, no accessory muscle use, lungs are clear to auscultation, no wheezing, rales or rhonchi Back: non-tender GI: Soft and nontender Musculoskeletal: The patient has no evidence of calf tenderness, no pitting edema, symmetrical pulses noted bilaterally Neurological: Awake and alert Psychiatric: Cooperative Constitutional Vital Signs, click to edit/add: Last Vital Signs Temp 98 F 05/03/25 10:28 Pulse 51 L 05/03/25 12:20 Resp 13 05/03/25 12:20 BP 150/79 H 05/03/25 12:00 Pulse Ox 96 05/03/25 12:20 O2 Del Method Room Air 05/03/25 11:00 Course Vital Signs Vital signs: Vital Signs Temperature 98 F 05/03/25 10:28 Pulse Rate 70 05/03/25 10:28 Respiratory Rate 16 05/03/25 10:28 Blood Pressure 166/85 H 05/03/25 10:28 Pulse Oximetry 96 05/03/25 10:28 Oxygen Delivery Method Room Air 05/03/25 10:28 Temperature 98 F 05/03/25 10:28 Pulse Rate 51 L 05/03/25 12:20 Respiratory Rate 13 05/03/25 12:20 Blood Pressure 150/79 H 05/03/25 12:00 Pulse Oximetry 96 05/03/25 12:20 Oxygen Delivery Method Room Air 05/03/25 11:00 Medical Decision Making MDM Narrative Medical decision making narrative: His workup is negative and his pupils are symmetric. He has no symptoms now and he is released home. Treatment diagnosis and follow-up were discussed with his Differential Diagnosis Differential Diagnosis: UTI, intracranial hemorrhage, anemia, acute kidney injury Lab Data Lab results reviewed: Yes I reviewed the patient's lab results Labs: Lab Results 05/03/25 05/03/25 05/03/25 Range/Units 10:37 10:40 12:30 WBC 6.6 (4.0-11.0) 10^3/uL RBC 4.74 (4.70-6.10) 10^6/uL Hgb 14.9 (14.0-18.0) g/dL Hct 44.6 (42.0-54.0) % MCV 94.1 H (80.0-94.0) fL MCH 31.4 (25.9-34.0) pg MCHC 33.4 (29.9-35.2) g/dL RDW 13.3 (11.0-15.0) % Plt Count 175 (150-450) 10^3/uL MPV 10.1 (9.5-13.5) fL Neut % (Auto) 67.3 (43.0-75.0) % Lymph % (Auto) 18.0 L (20.5-60.0) % [place] % (Auto) 12.1 H (1.7-12.0) % Eos % (Auto) 1.8 (0.9-7.0) % Baso % (Auto) 0.5 (0.2-2.0) % Neut # (Auto) 4.5 (1.4-6.5) 10^3/uL Lymph # (Auto) 1.2 (1.2-3.8) 10^3/uL [place] # (Auto) 0.8 (0.3-0.8) 10^3/uL Eos # (Auto) 0.1 (0.0-0.7) 10^3/uL Baso # (Auto) 0.0 (0.0-0.1) 10^3/uL Abs Immat Gran (auto) 0.02 (0.00-0.03) 10^3/uL Imm/Tot Granulo (auto) 0.3 (0.0-0.5) % Sodium 145 (136-145) mmol/L Potassium 3.7 (3.5-5.1) mmol/L Chloride 108 H (98-107) mmol/L Carbon Dioxide 29.2 (21.0-32.0) mmol/L Anion Gap 11.5 BUN 21.0 H (7.0-18.0) mg/dL Creatinine 1.15 (0.70-1.30) mg/dL Est GFR ( Amer) >60 (>=60 mL/min/1.73m^2) Est GFR (Non-Af Amer) >60 (>=60 mL/min/1.73m^2) BUN/Creatinine Ratio 18.3 Glucose 84 (74-106) mg/dL Calcium 8.8 (8.5-10.1) mg/dL Urine Color Yellow (YELLOW) Urine Clarity Clear (CLEAR) Urine pH 6.0 (5.0-9.0) Ur Specific [place] 1.025 (1.005-1.025) Urine Protein Negative (NEG/TRACE) mg/dL Urine Glucose (UA) Negative (NEGATIVE) mg/dL Urine Ketones Negative (NEGATIVE) mg/dL Urine Occult Blood Negative (NEGATIVE) Urine Nitrite Negative (NEGATIVE) Urine Bilirubin Negative (NEGATIVE) Urine Urobilinogen 1.0 (0.2-1.0) EU/dL Ur Leukocyte Esterase Negative (NEGATIVE) Urine RBC 0-2 (0-2) #/HPF Urine WBC 0-2 A (NONE SEEN) #/HPF Ur Squamous Epith Cells Rare (NONE/RARE) #/LPF Urine Crystals None seen (None Seen) #/HPF Urine Bacteria Trace A (NONE SEEN) #/HPF Urine Casts Seen A (NONE SEEN) #/LPF Hyaline Casts Rare Urine Mucus Trace A (NONE SEEN) Ur Culture Indicated? No POC Glucose 92 (74-106) mg/dL Imaging Data CT brain, chest: Radiologist's impression: ITS Impressions Head CT 05/03/25 11:20 IMPRESSION: ATROPHY AND CHRONIC MICROVASCULAR CHANGES. NO DEFINITE ACUTE INTRACRANIAL ABNORMALITY. FOLLOW-UP IS RECOMMENDED, SYMPTOMS WARRANT Impression dictated by: Hope Marie M.D. 05/03/2025 11:45 AM Dictation Location: [facility] Electronically authenticated by: [id number] Y Date: 05/03/2025 11:45 Chest X-Ray 05/03/25 11:25 IMPRESSION: NO ACUTE FINDINGS Impression dictated by: Hope Marie M.D. 05/03/2025 11:39 AM Dictation Location: [facility] Electronically authenticated by: [id number] Y Date: 05/03/2025 11:39 ECG Data Attestation: I personally reviewed and interpreted this ECG as follows: (EKG on my interpretation shows sinus rhythm with a rate of 67 and no acute) Discharge Plan Discharge Chief Complaint: Altered Mental Status Clinical Impression: Altered mental status Patient Disposition: Home, Self-Care Time of Disposition Decision: 13:31 Condition: Good Mode of Transportation: Private Vehicle Prescriptions / Home Meds: No Action donepezil 10 mg tablet 10 mg PO BEDTIME Print Language: Mohawk Instructions: Altered Mental Status (ED) Referrals: DANIEL XIE [Primary Care Provider, Family Practice] - 1 week
[2025-05-03 11:01] LABS: Hematocrit 44.6 % (42.0-54.0); Hemoglobin 14.9 g/dL (14.0-18.0); Immature Granulocytes Abs Auto 0.02 10^3/uL (0.00-0.03); Immature Granulocytes Pct Auto 0.3 % (0.0-0.5); Lymphocytes Absolute Auto 1.2 10^3/uL (1.2-3.8); Mean Corpuscular HGB Conc 33.4 g/dL (29.9-35.2); Mean Corpuscular Hemoglobin 31.4 pg (25.9-34.0); Mean Corpuscular Volume 94.1 fL (80.0-94.0); Platelet Count 175 10^3/uL (150-450); Red Blood Count 4.74 10^6/uL (4.70-6.10); White Blood Count 6.6 10^3/uL (4.0-11.0)
[2025-05-03 11:15] LABS: Anion Gap 11.5; Blood Urea Nitrogen 21.0 mg/dL (7.0-18.0); Calcium 8.8 mg/dL (8.5-10.1); Carbon Dioxide 29.2 mmol/L (21.0-32.0); Chloride 108 mmol/L (98-107); Estimated GFR (African America >60 (>=60 mL/min/1.73m^2); Estimated GFR (Non-African Ame >60 (>=60 mL/min/1.73m^2); Glucose 84 mg/dL (74-106); Potassium 3.7 mmol/L (3.5-5.1); Sodium 145 mmol/L (136-145)
--- NOTE | 2025-05-03 11:20 | CT_ITS ---
The [address] [address] Patient Name: CARRIE JONES MRN: [id number] date: 1935 Sex: M Assigned Patient Location: ED.MAIN Current Patient Location: ED.MAIN Accession/Order Number: [id number] Exam Date: 05/03/2025 11:39 Report Date: 05/03/2025 11:45 At the request of: CARLI KEITH MD Procedure: CT head/brain wo con CT BRAIN WITHOUT CONTRAST: CLINICAL HISTORY: Confusion. COMPARISON: 08/10/2022 TECHNIQUE: Contiguous axial unenhanced images were obtained through the brain. This CT exam was performed using one or more following dose reduction techniques: Automated exposure control, adjustment of the mA and/or kV according to patient size, or use of iterative reconstruction technique. FINDINGS: There is generalized atrophy. The ventricles are similar in size and position. Mild to moderate microvascular changes are again noted. There are no additional areas of abnormal attenuation. There is no hemorrhage, mass effect or extra-axial collections. Mild polypoid maxillary mucosal thickening is seen, right greater than left. The remaining imaged paranasal sinuses and mastoid air cells are clear. CT/CT head/brain wo con IMPRESSION: ATROPHY AND CHRONIC MICROVASCULAR CHANGES. NO DEFINITE ACUTE INTRACRANIAL ABNORMALITY. FOLLOW-UP IS RECOMMENDED, SYMPTOMS WARRANT Impression dictated by: Hope Marie M.D. 05/03/2025 11:45 AM Dictation Location: [place] [address] Electronically authenticated by: [id number] Y Date: 05/03/2025 11:45
--- NOTE | 2025-05-03 11:25 | XR_ITS ---
The [address] [address] Patient Name: CARRIE JONES MRN: [id number] date: 1935 Sex: M Assigned Patient Location: ED.MAIN Current Patient Location: ED.MAIN Accession/Order Number: [id number] Exam Date: 05/03/2025 11:36 Report Date: 05/03/2025 11:39 At the request of: CARLI KEITH MD Procedure: XR chest 1V PORTABLE AP ERECT CHEST 1120 hours CLINICAL HISTORY: Confusion. Right leg dilatation. COMPARISON: 10/19/2024 and 08/01/2021 The heart is within normal limits. There is no vascular congestion. No developing consolidation is seen. There is a potential granuloma on the left. There is no effusion or pneumothorax. The bony structures are osteopenic. There are chronic appearing rib deformities. There are degenerative changes at both shoulders. There is endplate spurring at the spine. XR/XR chest 1V IMPRESSION: NO ACUTE FINDINGS Impression dictated by: Hope Marie M.D. 05/03/2025 11:39 AM Dictation Location: [place] [address] Electronically authenticated by: [id number] Y Date: 05/03/2025 11:39
[2025-05-03 12:49] LABS: Glucose Urine UA NEGATIVE (NEGATIVE)
[2025-05-03 13:07] LABS: Crystals Seen? None Seen #/HPF (None Seen)
[2025-05-03 13:08] LABS: Cast Seen? SEEN #/LPF (NONE SEEN); Urine Culture Indicated NO
== END 2025-05-03 13:46 | disposition home or self-care (01) ==
PROVIDERS: Emergency Provider Emergency Medicine; PCP Family Medicine
DX: R41.82 Altered mental status, unspecified (principal)
CPT/HCPCS: 36415; 70450; 71045; 80048; 81001; 85025; 93005; 99285